=== PATIENT | male | born 1960 | race Caucasian/White ===

== ENCOUNTER 2016-11-19 16:25 | Emergency (ER) | payer SELFPAY ==
[2016-11-19] MEDS ORDERED: ASPIRIN 81 MG TABLET, CHEWABLE PO ONE (16:27)
[2016-11-19 17:13] LABS: ABSOLUTE EOSINOPHILS # (AUTO) 0.2 10^3/uL (0.0-0.6); ABSOLUTE LYMPHOCYTES (AUTO) 1.2 10^3/uL (0.5-4.7); ABSOLUTE MONOCYTES (AUTO) 0.6 10^3/uL (0.1-1.4); BASOPHILS % (AUTO) 0.6 % (0-2); EOSINOPHILS % (AUTO) 3.3 % (0-6); HEMATOCRIT 37.4 % (37.9-51.0); HEMOGLOBIN 12.5 g/dL (13.5-17.0); HGB HCT DIFFERENCE 0.1; LYMPHOCYTES % (AUTO) 24.2 % (13-45); MEAN CORPUSCULAR HEMOGLOBIN 30.7 pg (27.0-33.4); MEAN CORPUSCULAR HGB CONC 33.4 g/dL (32.0-36.0); MEAN CORPUSCULAR VOLUME 92 fl (80-97); MONOCYTES % (AUTO) 12.3 % (3-13); RED BLOOD COUNT 4.08 10^6/uL (4.35-5.55); RED CELL DISTRIBUTION WIDTH 19.1 % (11.5-14.0); SEGMENTED NEUTROPHILS % (AUTO) 59.6 % (42-78)
[2016-11-19] MEDS ORDERED: NORMAL SALINE 1000 ML 1,000 ML IV PRN (17:16)
[2016-11-19] MEDS ORDERED: ONDANSETRON HCL INJ/PF 4 MG/2 ML SDV IV ONE (17:16)
[2016-11-19] MEDS ORDERED: NITROGLYCERIN 2% OINTMENT 1 GM PACKET TP ONE (17:17)
[2016-11-19 17:24] LABS: ALANINE AMINOTRANSFERASE 70 U/L (21-72); ALBUMIN 3.8 g/dL (3.5-5.0); ALKALINE PHOSPHATASE 313 U/L (38-126); ANION GAP 16 (5-19); ASPARTATE AMINO TRANSFERASE 229 U/L (17-59); BILIRUBIN,TOTAL 1.4 mg/dL (0.2-1.3); BLOOD UREA NITROGEN 3 mg/dL (7-20); CALCIUM 8.7 mg/dL (8.4-10.2); CARBON DIOXIDE 24 mmol/L (22-30); CHLORIDE 101 mmol/L (98-107); CREATINE KINASE 51 U/L (55-170); CREATININE RESULT 0.51 mg/dL (0.52-1.25); GLUCOSE 85 mg/dL (75-110); POTASSIUM 4.1 mmol/L (3.6-5.0); SODIUM 140.6 mmol/L (137-145); TOTAL PROTEIN 6.9 g/dL (6.3-8.2)
--- NOTE | 2016-11-19 17:30 | ER Document Report ---
ED General - General Chief Complaint: Chest Pain Stated Complaint: SHORTNESS OF BREATH Time seen by provider: 15:10 Mode of Arrival: Medic Information source: Patient Notes: 56-year-old male who complains of nausea, vomiting, lower chest pain, epigastric pain since August 14. Patient says initially thought his symptoms were related to stomach flu but they have not ever gone away. He reports he's lost 15 pounds of weight since July. He reports about a month ago he had some blood in his stool or black stools but that resolved. He reports history of internal hemorrhoids and thought was related to that. Inc. produces his pain and nausea and sometimes even an attempt to swallow produces nausea and he gags and vomits material back up. He notices this both with solids and liquids. He also reports a one-month history of nasal congestion and cough productive of clear mucus and anterior facial pain at extremities to sinuses. He denies fever, chills, hematemesis, dysuria, back pain, or syncope. He reports his chest discomfort and nausea are not associated with exertion. He hasn't seen physician for symptoms like this previously and had no symptoms like this prior to July. Patient reports he had a cardiac catheterization at [facility] in February that was clear Physical Exam: General: Alert, appears well. HEENT: Normocephalic. Atraumatic. PERRLA. Extraocular movements intact. Oropharynx clear. Neck: Supple. Non-tender. Respiratory: No respiratory distress. Clear and equal breath sounds bilaterally. Not tender to palpation Cardiovascular: Regular rate and rhythm. Abdominal: Normal Inspection. Soft, mild epigastric tenderness no guarding rebound rigidity no referred pain. No distension. Normal Bowel Sounds. Back: Non-tender. No deformity or step off. Extremities: Moves all four extremities. Upper extremities: Normal inspection. Non-tender. Normal color. Normal ROM. Normal temperature. Lower extremities: Normal inspection. Non-tender. No edema. Normal color. Normal ROM. Normal temperature. Neurological: Speech clear mentation normal moves all extremities well Psychological: Normal affect. Normal Mood. Skin: Warm. Dry. Normal color. TRAVEL OUTSIDE OF THE [place] IN LAST 30 DAYS: No - Related Data Allergies/Adverse Reactions: morphine Allergy (Verified 05/28/16 08:08) Penicillins Allergy (Verified 05/28/16 08:08) Past Medical History - Social History Smoking Status: Current Every Day Smoker Family History: CAD - Past Medical History Cardiac Medical History: Reports: Hx Hypertension Psychiatric Medical History: Reports: Hx Depression - Severe Past Surgical History: Reports: Hx Orthopedic Surgery - Immunizations Hx Diphtheria, Pertussis, Tetanus Vaccination: No Review of Systems - Review of Systems Constitutional: denies: Chills, Fever EENT: denies: Ear pain, Throat pain Cardiovascular: See HPI Respiratory: See HPI Gastrointestinal: See HPI Genitourinary: denies: Burning, Dysuria Musculoskeletal: denies: Back pain, Muscle pain, Ankle swelling Skin: denies: Rash Hematologic/Lymphatic: denies: Swollen glands Neurological/Psychological: denies: Weakness, Numbness Physical Exam - Vital signs Vitals: Pulse Ox 95 11/19/16 16:28 Course - Re-evaluation Re-evalutation: 11/19/16 20:08 Patient has had by his report a negative cardiac catheterization within the past year. Patient does not have a positive sonographic Umaña sign but no gallstones pericholecystic fluid or ultrasound evidence for cholecystitis. Swallowing study was normal. 3 abdomen is normal. Patient does not have a surgical abdomen. His hemoglobin is stable. Believe his symptoms are related to gastritis possibly with alcohol use. He'll be discharged with prescription for Carafate and Phenergan and instructed to take proton pump inhibitor and instructed to follow with gastroenterology for further evaluation but I do not believe he requires admission for endoscopy now. - Vital Signs Vital signs: Temp Pulse Resp BP Pulse Ox 97.6 F 19 140/67 H 99 11/19/16 17:01 11/19/16 19:43 11/19/16 18:09 11/19/16 19:43 - Laboratory Result Diagrams: 11/19/16 16:50 11/19/16 16:50 Laboratory results interpreted by me: 11/19/16 11/19/16 16:50 16:50 RBC 4.08 L Hgb 12.5 L Hct 37.4 L RDW 19.1 H Plt Count 89 L BUN 3 L Creatinine 0.51 L Total Bilirubin 1.4 H AST 229 H Alkaline Phosphatase 313 H Creatine Kinase 51 L - Diagnostic Test Radiology reviewed: Image reviewed, Reports reviewed - EKG Interpretation by Me Additional EKG results interpreted by me: 11/19/16 17:30 EKG reviewed by myself shows sinus tachycardia 105 with frequent premature junctional beats no acute changes Discharge - Discharge Clinical Impression: Abdominal pain Qualifiers: Abdominal location: epigastric Qualified Code(s): R10.13 - Epigastric pain Nausea & vomiting Qualifiers: Vomiting type: unspecified Vomiting Intractability: unspecified Qualified Code( s): R11.2 - Nausea with vomiting, unspecified Condition: Stable Disposition: HOME, SELF-CARE Instructions: Abdominal Pain ([facility]) Additional Instructions: Nausea or Vomiting, Nonspecific Vomiting (or nausea without vomiting) can be caused by many different problems. Of course, it can mean that something's wrong with the stomach, such as "stomach flu," ulcers, or inflammation. But it can also be a symptom of a problem that has nothing to do with the stomach or intestines. Vomiting is common with severe headaches, earaches, and tonsillitis. We see it with pneumonia or heart attacks. Drugs can cause nausea. Many abdominal problems cause vomiting; for example, gallstones, kidney stones, pancreatitis, and intestinal obstruction (blocked bowels). In most cases, curing the vomiting depends on fixing the problem that caused it. For temporary relief, we may use an anti-nausea medicine. For home use, we can prescribe suppositories, chewable pills, pills that dissolve in the mouth, or liquid anti-nausea drugs. If the vomiting seems to be caused by a problem in the stomach, acid-suppressing drugs may be prescribed as well. It's important to avoid dehydration. Sip clear liquids. Take increasing amounts of fluid over the first 24 hours. Then start small amounts of bland foods (such as dry toast, applesauce, mashed potato). Avoid aspirin, tobacco, and alcohol. Gradually resume your usual diet. If the vomiting worsens, if the problem that's making you vomit worsens, or if there's evidence of bleeding in the stomach (such as black, tarry stool, bloody or black vomit, or lightheadedness), you should return immediately. Call your doctor if you aren't improved in 24 to 36 hours. Take Prilosec or Prevacid as directed on package in addition to the medicines your prescribed. Follow-up with gastroenterology for recheck. Drinking alcohol will make her abdominal pain worse. Stopping alcohol use suddenly can cause withdrawal which can be dangerous. Your given the number for our [facility] behavioral services which can assist you with safely stopping alcohol use Prescriptions: Promethazine HCl [Phenergan 25 mg Tablet] 1 tab PO Q6H PRN #30 tablet PRN Reason: Sucralfate [Carafate 1 gm Tablet] 1 gm PO ACHS #60 tablet Referrals: PHOENIX LUA MD [ACTIVE STAFF] - Follow up in [address] [facility] [Provider Group] - Follow up in 1 week
[2016-11-19 17:35] LABS: POIKILOCYTOSIS 1+; POLYCHROMASIA SLIGHT
[2016-11-19 17:36] LABS: CREATINE KINASE MB 0.23 ng/mL (<4.55); TEAR DROP CELLS SLIGHT; TROPONIN I < 0.012 ng/mL
[2016-11-19 17:37] LABS: TARGET CELLS 2+
[2016-11-19 17:45] LABS: LIPASE 149.2 U/L (23-300); MAGNESIUM 1.9 mg/dL (1.6-2.3)
[2016-11-19] MEDS ORDERED: THIAMINE HCL 100 MG, FOLIC ACID 1 MG in NORMAL SALINE 50 ML IV ONE (18:39)
[2016-11-19] MEDS ORDERED: LIDOCAINE 2% VISCOUS SOLN 20 ML UDCUP PO ONE (19:56)
[2016-11-19] MEDS ORDERED: METOCLOPRAMIDE HCL ORAL SOLN 10 MG/10 ML UDCUP PO ONE (19:56)
[2016-11-19] MEDS ORDERED: MAG HYDROX/AL HYDROX/SIMETH SUSP 30 ML UDCUP PO ONE (19:56)
--- NOTE | 2016-11-19 22:03 | EKG REPORT ---
SEVERITY:- ABNORMAL ECG - SINUS TACHYCARDIA VENTRICULAR PREMATURE COMPLEX LEFT ANTERIOR FASCICULAR BLOCK : Confirmed by: Jaclyn Deleon MD 19-Nov-2016 22:02:05
[2016-11-19 22:19] VITALS: BP 148/79
== END 2016-11-19 22:19 | disposition home or self-care (01) ==
LOC: ER 16:25
DX: R10.13 Epigastric pain (principal); R11.2 Nausea with vomiting, unspecified; R07.9 Chest pain, unspecified; R63.4 Abnormal weight loss; Z68.21 Body mass index [BMI] 21.0-21.9, adult; Z87.19 Personal history of other diseases of the digestive system; R09.81 Nasal congestion; R05 Cough; I10 Essential (primary) hypertension; I49.40 Unspecified premature depolarization; R00.0 Tachycardia, unspecified; F17.200 Nicotine dependence, unspecified, uncomplicated; Z88.5 Allergy status to narcotic agent; Z88.0 Allergy status to penicillin; Z82.49 Family history of ischemic heart disease and other diseases of the circulatory system
CPT/HCPCS: 93005; 99285; 96361; 96375; 96365; 36415; 82553; 80307; 82550; 83690; 83735; 85025; 80053; 84484; 74022; 74220; 76705; 93010; J3490 ×2; J3411; J2405; J7030

== ENCOUNTER 2016-12-31 02:17 | Inpatient (IN) | payer SELFPAY ==
[2016-12-31] MEDS ORDERED: ONDANSETRON HCL INJ/PF 4 MG/2 ML SDV IV ONE ×2 (02:28→05:25)
[2016-12-31] MEDS ORDERED: KETOROLAC TROMETHAMINE INJ/PF 30 MG/1 ML SDV IV ONE (02:28)
[2016-12-31 03:01] LABS: HEMOGLOBIN 11.5 g/dL (13.5-17.0); HGB HCT DIFFERENCE 0.5; MEAN CORPUSCULAR HEMOGLOBIN 33.5 pg (27.0-33.4); MEAN CORPUSCULAR HGB CONC 33.7 g/dL (32.0-36.0); MEAN CORPUSCULAR VOLUME 100 fl (80-97); RED BLOOD COUNT 3.42 10^6/uL (4.35-5.55); RED CELL DISTRIBUTION WIDTH 15.8 % (11.5-14.0); WHITE BLOOD COUNT 11.7 10^3/uL (4.0-10.5)
[2016-12-31 03:13] LABS: ALANINE AMINOTRANSFERASE 42 U/L (21-72); ALBUMIN 3.2 g/dL (3.5-5.0); ALKALINE PHOSPHATASE 564 U/L (38-126); ANION GAP 15 (5-19); ASPARTATE AMINO TRANSFERASE 229 U/L (17-59); BILIRUBIN,DIRECT 4.1 mg/dL (0.0-0.4); BILIRUBIN,TOTAL 4.8 mg/dL (0.2-1.3); BLOOD UREA NITROGEN 3 mg/dL (7-20); CALCIUM 7.8 mg/dL (8.4-10.2); CARBON DIOXIDE 22 mmol/L (22-30); CHLORIDE 96 mmol/L (98-107); CREATININE RESULT 0.44 mg/dL (0.52-1.25); GLUCOSE 101 mg/dL (75-110); LIPASE 197.4 U/L (23-300); POTASSIUM 3.8 mmol/L (3.6-5.0); TOTAL PROTEIN 6.9 g/dL (6.3-8.2)
[2016-12-31 03:29] LABS: BASOPHILS % (MANUAL) 1 % (0-2); EOSINOPHILS % (MANUAL) 0 % (0-6); LYMPHOCYTES % (MANUAL) 20 % (13-45); TOTAL CELLS COUNTED 100
[2016-12-31 03:32] LABS: ANISOCYTOSIS 1+; POIKILOCYTOSIS 1+; TARGET CELLS 1+; TOXIC GRANULATION SLIGHT; TOXIC VACUOLATION PRESENT
[2016-12-31 04:39] LABS: APPEARANCE,URINE CLEAR; BILIRUBIN,URINE SMALL (NEGATIVE); GLUCOSE, URINE NEGATIVE (NEGATIVE); KETONES,URINE NEGATIVE (NEGATIVE); LEUKOCYTE ESTERASE,URINE NEGATIVE (NEGATIVE); NITRITE,URINE NEGATIVE (NEGATIVE); PROTEIN,URINE NEGATIVE (NEGATIVE); URINE SPECIFIC GRAVITY 1.008
[2016-12-31] MEDS ORDERED: HYDROMORPHONE HCL INJ/PF 2 MG/ML AMPULE IV ONE (05:27)
--- NOTE | 2016-12-31 06:01 | ER Document Report ---
ED General - General Chief Complaint: Abdominal Pain Stated Complaint: ABDOMINAL PAIN Mode of Arrival: Medic Information source: Patient, Relative - Notes: Patient presents to the emergency department with complaints of severe abdominal pain and distention. Patient reports symptoms have been going on since July. He also reports he's had some nausea vomiting or diarrhea since July. He reports his last bowel movement was yesterday but very little. He reports that he does drink alcohol, a couple beers every night. His said he drinks a lot more than that, reports he is a very heavy drinker. Patient reports he was evaluated for this sometime last year. He states he does not have insurance so he never followed up and the pain has gotten worse. Also reports his stomach is larger. TRAVEL OUTSIDE OF THE [place] IN LAST 30 DAYS: No - HPI Onset: - july Onset/Duration: Persistent Quality of pain: Achy, Pressure Severity: Severe Pain Level: 5 Associated symptoms: Diarrhea, Nausea, Vomiting Exacerbated by: Denies Relieved by: Denies Similar symptoms previously: Yes Recently seen / treated by doctor: No - Related Data Allergies/Adverse Reactions: morphine Allergy (Verified 05/28/16 08:08) Penicillins Allergy (Verified 05/28/16 08:08) Past Medical History - General Information source: Patient, Relative - - Social History Smoking Status: Current Every Day Smoker Cigarette use (# per day): Yes Frequency of alcohol use: Heavy Drug Abuse: None Lives with: Family Family History: CAD Patient has suicidal ideation: No Patient has homicidal ideation: No - Past Medical History Cardiac Medical History: Reports: Hx Hypertension Neurological Medical History: Reports: Hx Cerebrovascular Accident Psychiatric Medical History: Reports: Hx Depression - Severe Past Surgical History: Reports: Hx Orthopedic Surgery - Immunizations Hx Diphtheria, Pertussis, Tetanus Vaccination: No Review of Systems - Review of Systems Notes: Review HPI for review of systems., All other systems negative Physical Exam - Vital signs Vitals: Temp Pulse BP Pulse Ox 98.2 F 107 H 120/72 95 12/31/16 02:21 12/31/16 02:21 12/31/16 02:21 12/31/16 02:21 - Notes Notes: PHYSICAL EXAMINATION: GENERAL: looks older than age HEAD: Atraumatic, normocephalic. EYES: Pupils equal round sclera anicteric, conjunctiva are normal. ENT: nares patent . Moist mucous membranes. NECK: Normal range of motion, supple without lymphadenopathy LUNGS: CTAB and equal. No wheezes rales or rhonchi. HEART: Regular rate and rhythm without murmurs ABDOMEN: Large round tight, ttp, distension EXTREMITIES: Normal range of motion, no pitting edema. No cyanosis. NEUROLOGICAL: Cranial nerves grossly intact. Normal sensory/motor PSYCH: Normal mood, normal affect. SKIN: Warm, Dry, normal turgor, no rashes or lesions noted Course - Re-evaluation Re-evalutation: 12/31/16 06:04 serum alcohol 242, patient calm ascites noted on ultrasound liver enzymes elevated. 12/31/16 07:[address] POSEY, AGREES WITH ADMISSION, DR CRISTOBAL CONSULTED, AGREES WITH ADMISSION. PT UPDATED ON PLAN - Vital Signs Vital signs: Temp Pulse Resp BP Pulse Ox 98.6 F 90 18 137/72 H 94 12/31/16 15:35 12/31/16 15:35 12/31/16 15:35 12/31/16 15:35 12/31/16 15:35 - Laboratory Result Diagrams: 12/31/16 02:50 12/31/16 02:50 Laboratory results interpreted by me: 12/31/16 12/31/16 12/31/16 02:50 02:50 02:50 WBC 11.7 H RBC 3.42 L Hgb 11.5 L Hct 34.0 L MCV 100 H MCH 33.5 H RDW 15.8 H Plt Count 81 L Abs Neuts (Manual) 8.4 H Sodium 133.0 L Chloride 96 L BUN 3 L Creatinine 0.44 L Calcium 7.8 L Total Bilirubin 4.8 H Direct Bilirubin 4.1 H AST 229 H Alkaline Phosphatase 564 H Albumin 3.2 L Urine Bilirubin Urine Urobilinogen Acetaminophen < 10 L 12/31/16 04:05 WBC RBC Hgb Hct MCV MCH RDW Plt Count Abs Neuts (Manual) Sodium Chloride BUN Creatinine Calcium Total Bilirubin Direct Bilirubin AST Alkaline Phosphatase Albumin Urine Bilirubin SMALL H Urine Urobilinogen 4.0 H Acetaminophen - Diagnostic Test Radiology reviewed: Image reviewed, Reports reviewed - US/U/ S ABDOMEN LTD W/DOPPLER IMPRESSION: Technical limitations as above. Trace ascites Discharge - Discharge Clinical Impression: Ascites of liver Condition: Stable Disposition: ADMITTED INPATIENT Admitting Provider: Hospitalist - buste Unit Admitted: Medical Floor
[2016-12-31] MEDS ORDERED: NORMAL SALINE 1000 ML 1,000 ML IV ONE (07:37)
[2016-12-31] MEDS ORDERED: IPRATROPIUM/ALBUTEROL 0.5-2.5 MG/3 ML AMPUL NEB PRN (08:34)
[2016-12-31] MEDS ORDERED: LORAZEPAM 1 MG TABLET PO PRN (08:43)
[2016-12-31] MEDS ORDERED: CEFOTAXIME SODIUM 2 GM in DEXTROSE 5%-WATER 50 ML IV SCH (08:45)
[2016-12-31] MEDS ORDERED: OXYCODONE-ACETAMINOPHEN 5-325 MG TABLET ONE (08:51)
[2016-12-31] MEDS: FAMOTIDINE 20 MG TABLET PO SCH ×2 (09:32→21:33)
[2016-12-31] MEDS: NORMAL SALINE 1000 ML 1,000 ML IV PRN ×3 (09:54→22:48)
[2016-12-31] MEDS ORDERED: CYANOCOBALAMIN (VITAMIN B-12) 1,000 MCG TABLET PO SCH (10:00)
[2016-12-31] MEDS ORDERED: CEFTRIAXONE RTU 2 GM/D5W 50 ML IV SCH (10:00)
[2016-12-31] MEDS ORDERED: THIAMINE HCL 100 MG TABLET PO SCH (10:00)
[2016-12-31] MEDS ORDERED: FOLIC ACID 1 MG TABLET PO SCH (10:00)
[2016-12-31] MEDS: OXYCODONE-ACETAMINOPHEN 5-325 MG TABLET PO PRN ×2 (11:16→21:35)
--- NOTE | 2016-12-31 11:25 | PDOC H&P ---
History of Present Illness Admission Date/PCP: 12/31/16 08:34 Patient complains of: Nausea and vomiting and abdominal pain. History of Present Illness: ELSA FONTENOT JR is a 56 year old male who reports a two-month history of nausea and vomiting along with diarrhea but this got progressively worse over the last 2 days. He reports she's had a 20 pound weight loss over the last year. He also reports having some low-grade fevers and chills. He is a alcoholic who has at least 3 beers daily. He had an ultrasound done which shows him to have some ascitic fluid present. The patient takes no medications. He denies any cough. He denies orthopnea or PND. Denies any lower extremity edema. He does report he drinks at least 3 beers daily in the past has drank more than that. Patient reports he feels dizzy when he stands up but denies any loss of consciousness. Denies any chest pain or palpitations. Denies any dysuria. Denies any hematemesis. Denies any melena or bright red blood per rectum. Past Medical History Cardiac Medical History: Reports: Hypertension Pulmonary Medical History: Reports: None EENT Medical History: Reports: None Neurological Medical History: Reports: Ischemic CVA Endocrine Medical History: Reports: None Renal/ Medical History: Reports: None Malignancy Medical History: Reports: None Skin Medical History: Reports: None Psychiatric Medical History: Reports: Depression - Severe Traumatic Medical History: Reports: None Hematology: Reports: None Infectious Medical History: Reports: None Past Surgical History Past Surgical History: Reports: Orthopedic Surgery - Back surgery Social History Information Source: Patient Lives with: Family Smoking Status: Current Every Day Smoker Cigarettes Packs Per Day: 0.5 Frequency of Alcohol Use: Heavy Hx Recreational Drug Use: No Drugs: None Hx Prescription Drug Abuse: No - Advance Directive Resuscitation Status: Full Code Surrogate healthcare decision maker:: His Family History Family History: CAD Family History: Father at age 81 had coronary artery disease as well as hyperlipidemia. Mother at age 71 from coronary artery disease. Parental Family History Reviewed: Yes Children Family History Reviewed: No Sibling(s) Family History Reviewed.: No Medication/Allergy Home Medications: Cyanocobalamin (Vitamin B-12) [B-12] 1,000 mcg PO DAILY #30 tablet 03/20/16 Thiamine HCl [Thiamine 100 mg Tablet] 200 mg PO DAILY #60 tablet 03/20/16 Tramadol HCl [Ultram 50 mg Tablet] 50 mg PO Q12HP PRN #20 tablet 03/20/16 Promethazine HCl [Phenergan 25 mg Tablet] 1 tab PO Q6H PRN #30 tablet 11/19/16 Sucralfate [Carafate 1 gm Tablet] 1 gm PO ACHS #60 tablet 11/19/16 Allergies/Adverse Reactions: morphine Allergy (Verified 05/28/16 08:08) Penicillins Allergy (Verified 05/28/16 08:08) Review of Systems Constitutional: PRESENT: chills, fever(s), weight loss - 20 pound weight loss. ABSENT: night sweats, weakness Eyes: ABSENT: visual disturbances Ears: ABSENT: hearing changes Cardiovascular: ABSENT: chest pain, dyspnea on exertion, edema, orthropnea, palpitations Respiratory: ABSENT: cough, hemoptysis Gastrointestinal: PRESENT: abdominal pain, bloating, diarrhea, nausea, vomiting. ABSENT: coffee ground emesis, heartburn, hematemesis, hematochezia, melena Genitourinary: ABSENT: dysuria, hematuria Musculoskeletal: ABSENT: joint swelling Integumentary: ABSENT: rash, wounds Neurological: ABSENT: abnormal gait, abnormal speech, confusion, dizziness, focal weakness, syncope Psychiatric: ABSENT: anxiety, depression Endocrine: ABSENT: cold intolerance, heat intolerance, polydipsia, polyuria Hematologic/Lymphatic: ABSENT: easy bleeding, easy bruising Physical Exam Vital Signs: Temp Pulse Resp BP Pulse Ox 98.1 F 77 18 133/68 H 92 12/31/16 10:07 12/31/16 10:07 12/31/16 10:07 12/31/16 10:07 12/31/16 10:07 Intake & Output 12/30/16 12/31/16 01/01/17 06:59 06:59 06:59 Weight 63.503 kg General appearance: PRESENT: no acute distress Eye exam: PRESENT: conjunctiva pink, scleral icterus Ear exam: PRESENT: normal external ear exam Mouth exam: PRESENT: moist, tongue midline Neck exam: ABSENT: carotid bruit, JVD, lymphadenopathy, thyromegaly Respiratory exam: PRESENT: clear to auscultation billy. ABSENT: rales, rhonchi, wheezes Cardiovascular exam: PRESENT: RRR. ABSENT: diastolic murmur, rubs, systolic murmur Pulses: PRESENT: normal dorsalis pedis pul Vascular exam: PRESENT: normal capillary refill GI/Abdominal exam: PRESENT: distended, firm, normal bowel sounds, tenderness - Diffuse tenderness.. ABSENT: guarding, rebound, rigid Rectal exam: PRESENT: heme (-) stool Extremities exam: ABSENT: calf tenderness, clubbing, pedal edema Neurological exam: PRESENT: alert, awake, oriented to person, oriented to place , oriented to time, oriented to situation, CN II-XII grossly intact. ABSENT: motor sensory deficit Psychiatric exam: PRESENT: appropriate affect, normal mood Skin exam: PRESENT: dry, intact, warm, other - Some spider hemangiomas present. ABSENT: cyanosis Results Impressions: Abdomen Ultrasound 12/31/16 05:25 IMPRESSION: Technical limitations as above. Trace ascites. Assessment & Plan - Diagnosis (1) Abdominal pain Is this a current diagnosis for this admission?: YesPlan: The patient denies any history of cirrhosis and his ultrasound shows coarse texture that is suggestive of that. He has been a heavy drinker. Given the small amount of ascites as present along with the abdominal pain we will treat empirically for spontaneous bacterial peritonitis. Radiology reports that there was not enough ascitic fluid to drain and we will just treat empirically. Patient will be given Rocephin. Will ask GI to evaluate to see whether or not any further workup needs to be done. His liver enzymes are elevated and it is assumed that this is from cirrhosis however we will check hepatitis serologies (2) Ascites of liver Is this a current diagnosis for this admission?: YesPlan: Patient is a small amount of ascites present. He does not have a formal diagnosis of cirrhosis yet. Patient is to be seen by GI for evaluation. (3) Alcohol abuse Is this a current diagnosis for this admission?: YesPlan: We'll give Ativan as needed. (4) Hyperlipidemia Is this a current diagnosis for this admission?: YesPlan: We'll hold off on any cholesterol medications given his elevated liver enzymes at this time. - Time Time Spent: 50 to 70 Minutes - Inpatient Certification Medical Necessity: Need for IV Antibiotics
[2016-12-31 13:40] LABS: PROTHROMBIN TIME 15.6 SEC (11.4-15.4)
[2016-12-31 13:41] LABS: PARTIAL THROMBOPLASTIN TIME 38.4 SEC (23.5-35.8)
[2016-12-31] MEDS: LORAZEPAM 1 MG TABLET PO PRN ×2 (16:10→20:27)
[2016-12-31] MEDS ORDERED: CEFTRIAXONE 2 GM/D5W RTU 2 GM/50 ML RTUPB IV SCH (18:00)
[2016-12-31] MEDS: LORAZEPAM INJ 2 MG/1 ML VIAL IV PRN ×2 (18:15→22:47)
--- NOTE | 2016-12-31 20:24 | PDOC CONSULTATION ---
Consultation Consult Date: 12/31/16 History of Present Illness Admission Date/PCP: 12/31/16 08:34 History of Present Illness: This is a 56 year old patient was admitted through the emergency room with abdominal pain, nausea, and vomiting. He has been having recurrent pain since August of last year. He has pain almost every day with or without eating. He denies diarrhea in fact he has been more constipated lately. There is no rectal bleeding. He had an ultrasound of the abdomen today that showed fatty liver and trace amount of ascites in the lower abdomen. He has had two CTA of the abdomen and chest and two other abdominal ultrasounds since February 2016 and this has not shown any significant abnormality except for fatty liver. None of these showed ascites. On admission his bilirubin was 4.8 with a direct of 4.1. His AST was 229 and alkaline phosphatase of 564. Back in October his bilirubin was 1.4 with elevated AST of 229 and alkaline phosphatase of 313. He also has thrombocytopenia at least since February of last year. He drinks alcohol every day Past Medical History Cardiac Medical History: Reports: Hypertension Pulmonary Medical History: Reports: None EENT Medical History: Reports: None Neurological Medical History: Reports: Ischemic CVA Endocrine Medical History: Reports: None Renal/ Medical History: Reports: None Malignancy Medical History: Reports: None Skin Medical History: Reports: None Psychiatric Medical History: Reports: Depression - Severe Traumatic Medical History: Reports: None Hematology: Reports: None Infectious Medical History: Reports: None Past Surgical History Past Surgical History: Reports: Orthopedic Surgery Social History Lives with: Family Smoking Status: Current Every Day Smoker Cigarettes Packs Per Day: 0.5 Frequency of Alcohol Use: Heavy Hx Recreational Drug Use: No Drugs: None Hx Prescription Drug Abuse: No - Advance Directive Resuscitation Status: Full Code Family History Family History: CAD Parental Family History Reviewed: No Children Family History Reviewed: NA Sibling(s) Family History Reviewed.: NA Medication/Allergy Home Medications: Cyanocobalamin (Vitamin B-12) [B-12] 1,000 mcg PO DAILY #30 tablet 03/20/16 Thiamine HCl [Thiamine 100 mg Tablet] 200 mg PO DAILY #60 tablet 03/20/16 Tramadol HCl [Ultram 50 mg Tablet] 50 mg PO Q12HP PRN #20 tablet 03/20/16 Promethazine HCl [Phenergan 25 mg Tablet] 1 tab PO Q6H PRN #30 tablet 11/19/16 Sucralfate [Carafate 1 gm Tablet] 1 gm PO ACHS #60 tablet 11/19/16 Allergies/Adverse Reactions: morphine Allergy (Verified 05/28/16 08:08) Penicillins Allergy (Verified 05/28/16 08:08) Review of Systems All systems: reviewed and no additional remarkable complaints except as stated Physical Exam Vital Signs: Temp Pulse Resp BP Pulse Ox 98.6 F 90 18 137/72 H 94 12/31/16 15:35 12/31/16 15:35 12/31/16 15:35 12/31/16 15:35 12/31/16 15:35 Intake & Output 12/30/16 12/31/16 01/01/17 06:59 06:59 06:59 Intake Total 1475 Output Total 300 Balance 1175 Weight 63.503 kg Exam: General: Patient is alert and looks unkempt HEENT: There is no pallor but he is jaundiced. PERRLA. Oropharynx normal Respiratory: Kyphosis. No respiratory distress. Chest wall palpitation was unremarkable. Breath sounds were normal Cardiovascular: Heart sounds 1 and 2 normal with no murmurs. Abdominal: Distended with mostly air. Soft and nontender. Liver and spleen not palpable. No ascites demonstrated. Bowel sounds active. Rectal examination was deferred. Extremities: No edema Neurological: Alert and oriented x4. Skin: No significant rash Psychological: Normal affect Results Impressions: Abdomen Ultrasound 12/31/16 05:25 IMPRESSION: Technical limitations as above. Trace ascites. Assessment & Plan - Diagnosis (1) Abdominal pain Is this a current diagnosis for this admission?: YesPlan: The etiology for his abdominal pain is unclear but differential diagnoses include gastric ulcer and gastritis, hepatic neoplasm, irritable bowel syndrome. He has had this pain for many months and previous ultrasound has been unremarkable. I will suggest a CAT scan of his abdomen especially with his jaundice. He would need endoscopies at some point which could be performed as outpatient (2) Cirrhosis of liver Qualifiers: Hepatic cirrhosis type: alcoholic cirrhosis Is this a current diagnosis for this admission?: YesPlan: I suspect he has cirrhosis with his thrombocytopenia and chronically elevated liver function tests. This is probably from his alcohol abuse but issue have hepatitis and autoimmune serology. (3) Alcohol abuse Is this a current diagnosis for this admission?: Yes (4) Ascites of liver Is this a current diagnosis for this admission?: YesPlan: He only had trace ascites on ultrasound which I do not believe will explain his abdominal pain and unlikely to be associated by peritonitis. He was started on empiric antibiotics
[2016-12-31] MEDS: CEFTRIAXONE 2 GM/D5W RTU 2 GM/50 ML RTUPB IV SCH (21:33)
[2017-01-01] MEDS: LORAZEPAM 1 MG TABLET PO PRN ×5 (01:31→19:37)
[2017-01-01] MEDS: LORAZEPAM INJ 2 MG/1 ML VIAL IV PRN ×4 (02:35→17:37)
[2017-01-01 05:30] LABS: ALANINE AMINOTRANSFERASE 43 U/L (21-72); ALBUMIN 2.6 g/dL (3.5-5.0); ALKALINE PHOSPHATASE 476 U/L (38-126); ANION GAP 13 (5-19); ASPARTATE AMINO TRANSFERASE 179 U/L (17-59); BILIRUBIN,DIRECT 5.1 mg/dL (0.0-0.4); BILIRUBIN,TOTAL 6.3 mg/dL (0.2-1.3); BLOOD UREA NITROGEN 2 mg/dL (7-20); CALCIUM 7.6 mg/dL (8.4-10.2); CARBON DIOXIDE 22 mmol/L (22-30); CHLORIDE 99 mmol/L (98-107); CREATININE RESULT 0.39 mg/dL (0.52-1.25); GLUCOSE 79 mg/dL (75-110); MAGNESIUM 1.5 mg/dL (1.6-2.3); SODIUM 133.5 mmol/L (137-145); TOTAL PROTEIN 5.8 g/dL (6.3-8.2)
[2017-01-01 05:35] LABS: POTASSIUM 3.5 mmol/L (3.6-5.0)
[2017-01-01] MEDS: OXYCODONE-ACETAMINOPHEN 5-325 MG TABLET PO PRN ×2 (05:48→20:19)
[2017-01-01] MEDS: MAGNESIUM SULFATE/D5W 100 ML IV SCH ×2 (08:37→10:22)
[2017-01-01] MEDS: NORMAL SALINE 1000 ML 1,000 ML IV PRN ×2 (08:37→21:23)
--- NOTE | 2017-01-01 09:50 | PDOC PROGRESS REPORT ---
Subjective Progress Note for:: 01/01/17 Subjective:: The patient is more confused today. He was evaluated by GI yesterday and had a CT scan. Physical Exam Vital Signs: Temp Pulse Resp BP Pulse Ox 98.4 F 86 16 132/69 H 98 01/01/17 07:19 01/01/17 09:33 01/01/17 09:33 01/01/17 07:19 01/01/17 09:33 Intake & Output 12/31/16 01/01/17 01/02/17 06:59 06:59 06:59 Intake Total 2985 Output Total 800 Balance 2185 Weight 69.4 kg General appearance: PRESENT: no acute distress Head exam: PRESENT: atraumatic, normocephalic Eye exam: PRESENT: conjunctiva pink. ABSENT: scleral icterus Ear exam: PRESENT: normal external ear exam Mouth exam: PRESENT: moist, tongue midline Neck exam: ABSENT: JVD Respiratory exam: PRESENT: clear to auscultation billy. ABSENT: rales, rhonchi, wheezes Cardiovascular exam: PRESENT: RRR. ABSENT: diastolic murmur, rubs, systolic murmur GI/Abdominal exam: PRESENT: normal bowel sounds, soft, tenderness - Mild diffuse tenderness.. ABSENT: distended, guarding, mass, organolmegaly, rebound Extremities exam: ABSENT: calf tenderness, clubbing, pedal edema Neurological exam: PRESENT: altered, oriented to person, oriented to place, CN II-XII grossly intact, motor sensory deficit. ABSENT: oriented to time, oriented to situation Psychiatric exam: PRESENT: flat affect Skin exam: PRESENT: dry, intact, warm. ABSENT: cyanosis, rash Results Laboratory Results: 01/01/17 03:39 01/01/17 03:39 Sodium 133.5 L Potassium 3.5 L Chloride 99 Carbon Dioxide 22 Anion Gap 13 BUN 2 L Creatinine 0.39 L Est GFR ( Amer) > 60 Est GFR (Non-Af Amer) > 60 Glucose 79 Calcium 7.6 L Magnesium 1.5 L Total Bilirubin 6.3 H AST 179 H ALT 43 Alkaline Phosphatase 476 H Total Protein 5.8 L Albumin 2.6 L Impressions: Abdomen Ultrasound 12/31/16 05:25 IMPRESSION: Technical limitations as above. Trace ascites. Abdomen/Pelvis CT 01/01/17 00:00 IMPRESSION: Diffuse fatty infiltration of the liver with an enlarged liver. Generalized ascites. Assessment & Plan - Diagnosis (1) Abdominal pain Is this a current diagnosis for this admission?: YesPlan: The patient was started on empiric treatment for spontaneous bacterial peritonitis. He was evaluated by gastroenterology yesterday. Their input is greatly appreciated. We'll continue with the Rocephin for now. Elevated liver enzymes and hepatitis serologies are pending. He also has antimitochondrial antibodies have been ordered. (2) Ascites of liver Is this a current diagnosis for this admission?: YesPlan: Patient is a small amount of ascites present. He does not have a formal diagnosis of cirrhosis yet. Patient has been seen by GI. (3) Alcohol abuse Is this a current diagnosis for this admission?: YesPlan: We'll give Ativan as needed. The patient has evidence for delirium tremens. (4) Hyperlipidemia Is this a current diagnosis for this admission?: YesPlan: We'll hold off on any cholesterol medications given his elevated liver enzymes at this time. - Time Time Spent with patient: 25-34 minutes - Inpatient Certification Medical Necessity: Need Close Monitoring Due to Risk of Patient Decompensation, Need For IV Fluids
[2017-01-01] MEDS: FAMOTIDINE 20 MG TABLET PO SCH ×2 (10:21→21:24)
[2017-01-01] MEDS: NORMAL SALINE 1000 ML 1,000 ML with POTASSIUM CHLORIDE 20 MEQ, MAGNESIUM SULFATE 8 MEQ,... IV PRN ×5 (11:06)
[2017-01-01] MEDS: CEFTRIAXONE 2 GM/D5W RTU 2 GM/50 ML RTUPB IV SCH (21:22)
[2017-01-02] MEDS: LORAZEPAM 1 MG TABLET PO PRN ×2 (04:34→22:00)
[2017-01-02] MEDS: OXYCODONE-ACETAMINOPHEN 5-325 MG TABLET PO PRN (04:34)
[2017-01-02 05:31] LABS: HEMATOCRIT 34.6 % (37.9-51.0); HEMOGLOBIN 11.8 g/dL (13.5-17.0); HGB HCT DIFFERENCE 0.8; MEAN CORPUSCULAR HEMOGLOBIN 34.2 pg (27.0-33.4); MEAN CORPUSCULAR VOLUME 101 fl (80-97); RED BLOOD COUNT 3.44 10^6/uL (4.35-5.55)
[2017-01-02 05:46] LABS: ALANINE AMINOTRANSFERASE 40 U/L (21-72); ALBUMIN 2.6 g/dL (3.5-5.0); ALKALINE PHOSPHATASE 463 U/L (38-126); ANION GAP 12 (5-19); ASPARTATE AMINO TRANSFERASE 146 U/L (17-59); BLOOD UREA NITROGEN 2 mg/dL (7-20); CALCIUM 7.3 mg/dL (8.4-10.2); CARBON DIOXIDE 23 mmol/L (22-30); CHLORIDE 100 mmol/L (98-107); CREATININE RESULT 0.33 mg/dL (0.52-1.25); GLUCOSE 61 mg/dL (75-110); MAGNESIUM 1.9 mg/dL (1.6-2.3); POTASSIUM 3.3 mmol/L (3.6-5.0); SODIUM 134.6 mmol/L (137-145); TOTAL PROTEIN 5.8 g/dL (6.3-8.2)
[2017-01-02] MEDS: NORMAL SALINE 1000 ML 1,000 ML IV PRN ×2 (05:58→23:54)
[2017-01-02 05:59] LABS: BASOPHILS % (MANUAL) 0 % (0-2); EOSINOPHILS % (MANUAL) 2 % (0-6); LYMPHOCYTES % (MANUAL) 8 % (13-45); TOTAL CELLS COUNTED 100
[2017-01-02 06:02] LABS: ANISOCYTOSIS 1+; POIKILOCYTOSIS 2+; TARGET CELLS 2+; TEAR DROP CELLS SLIGHT; TOXIC VACUOLATION PRESENT
[2017-01-02] MEDS: FAMOTIDINE 20 MG TABLET PO SCH ×2 (09:23→22:00)
--- NOTE | 2017-01-02 11:22 | PDOC PROGRESS REPORT ---
Subjective Progress Note for:: 01/02/17 Subjective:: The patient is still confused Physical Exam Vital Signs: Temp Pulse Resp BP Pulse Ox 97.4 F 99 16 131/86 H 98 01/02/17 03:42 01/02/17 08:00 01/02/17 08:00 01/02/17 07:08 01/02/17 08:00 Intake & Output 01/01/17 01/02/17 01/03/17 06:59 06:59 06:59 Intake Total 2985 2952 Output Total 800 Balance 2185 2952 Weight 69.4 kg 68.9 kg General appearance: PRESENT: no acute distress Eye exam: PRESENT: conjunctiva pink. ABSENT: scleral icterus Mouth exam: PRESENT: moist, tongue midline Neck exam: ABSENT: JVD Respiratory exam: PRESENT: clear to auscultation billy. ABSENT: rales, rhonchi, wheezes Cardiovascular exam: PRESENT: RRR. ABSENT: diastolic murmur, rubs, systolic murmur GI/Abdominal exam: PRESENT: normal bowel sounds, soft. ABSENT: distended, guarding, mass, organolmegaly, rebound, tenderness Extremities exam: ABSENT: calf tenderness, clubbing, pedal edema Neurological exam: PRESENT: altered, oriented to person, oriented to place, oriented to time, oriented to situation, CN II-XII grossly intact. ABSENT: motor sensory deficit Psychiatric exam: PRESENT: flat affect Skin exam: PRESENT: dry, intact, warm. ABSENT: cyanosis, rash Results Laboratory Results: 01/02/17 04:21 01/02/17 04:21 01/02/17 01/02/17 04:21 04:21 WBC 10.0 RBC 3.44 L Hgb 11.8 L Hct 34.6 L MCV 101 H MCH 34.2 H MCHC 34.0 RDW 16.0 H Plt Count 75 L Seg Neutrophils % Not Reportable Lymphocytes % Not Reportable Monocytes % Not Reportable Eosinophils % Not Reportable Basophils % Not Reportable Absolute Neutrophils Not Reportable Absolute Lymphocytes Not Reportable Absolute Monocytes Not Reportable Absolute Eosinophils Not Reportable Absolute Basophils Not Reportable Sodium 134.6 L Potassium 3.3 L Chloride 100 Carbon Dioxide 23 Anion Gap 12 BUN 2 L Creatinine 0.33 L Est GFR ( Amer) > 60 Est GFR (Non-Af Amer) > 60 Glucose 61 L Calcium 7.3 L Magnesium 1.9 Total Bilirubin 7.0 H AST 146 H ALT 40 Alkaline Phosphatase 463 H Total Protein 5.8 L Albumin 2.6 L Impressions: Abdomen Ultrasound 12/31/16 05:25 IMPRESSION: Technical limitations as above. Trace ascites. Abdomen/Pelvis CT 01/01/17 00:00 IMPRESSION: Diffuse fatty infiltration of the liver with an enlarged liver. Generalized ascites. Assessment & Plan - Diagnosis (1) Abdominal pain Is this a current diagnosis for this admission?: YesPlan: The patient was started on empiric treatment for spontaneous bacterial peritonitis. We'll continue with the Rocephin for now. Elevated liver enzymes and hepatitis serologies are pending. He also has antimitochondrial antibodies have been ordered. (2) Ascites of liver Is this a current diagnosis for this admission?: YesPlan: Patient is a small amount of ascites present. He does not have a formal diagnosis of cirrhosis yet. Patient has been seen by GI. (3) Alcohol abuse Is this a current diagnosis for this admission?: YesPlan: We'll give Ativan as needed. The patient has evidence for delirium tremens. (4) Hyperlipidemia Is this a current diagnosis for this admission?: YesPlan: We'll hold off on any cholesterol medications given his elevated liver enzymes at this time. - Time Time Spent with patient: 25-34 minutes - Inpatient Certification Medical Necessity: Need Close Monitoring Due to Risk of Patient Decompensation
[2017-01-02] MEDS: NORMAL SALINE 1000 ML 1,000 ML with POTASSIUM CHLORIDE 20 MEQ, MAGNESIUM SULFATE 8 MEQ,... IV PRN ×5 (13:28)
[2017-01-02] MEDS: CEFTRIAXONE 2 GM/D5W RTU 2 GM/50 ML RTUPB IV SCH (22:05)
[2017-01-03] MEDS: LORAZEPAM INJ 2 MG/1 ML VIAL IV PRN ×3 (02:10→22:51)
[2017-01-03 05:16] LABS: HEMATOCRIT 33.6 % (37.9-51.0); HEMOGLOBIN 11.2 g/dL (13.5-17.0); MEAN CORPUSCULAR HEMOGLOBIN 33.9 pg (27.0-33.4); MEAN CORPUSCULAR HGB CONC 33.3 g/dL (32.0-36.0); MEAN CORPUSCULAR VOLUME 102 fl (80-97); RED BLOOD COUNT 3.31 10^6/uL (4.35-5.55)
[2017-01-03 05:30] LABS: ALANINE AMINOTRANSFERASE 40 U/L (21-72); ALBUMIN 2.6 g/dL (3.5-5.0); ALKALINE PHOSPHATASE 390 U/L (38-126); ANION GAP 10 (5-19); ASPARTATE AMINO TRANSFERASE 133 U/L (17-59); BILIRUBIN,DIRECT 6.5 mg/dL (0.0-0.4); BILIRUBIN,TOTAL 7.6 mg/dL (0.2-1.3); BLOOD UREA NITROGEN 4 mg/dL (7-20); CALCIUM 7.6 mg/dL (8.4-10.2); CARBON DIOXIDE 23 mmol/L (22-30); CHLORIDE 102 mmol/L (98-107); CREATININE RESULT 0.32 mg/dL (0.52-1.25); GLUCOSE 76 mg/dL (75-110); POTASSIUM 3.5 mmol/L (3.6-5.0); SODIUM 135.4 mmol/L (137-145); TOTAL PROTEIN 5.7 g/dL (6.3-8.2)
[2017-01-03 05:41] LABS: BAND NEUTROPHILS % (MANUAL) 3 % (3-5); BASOPHILS % (MANUAL) 0 % (0-2); EOSINOPHILS % (MANUAL) 4 % (0-6); LYMPHOCYTES % (MANUAL) 10 % (13-45); TOTAL CELLS COUNTED 100
[2017-01-03 05:42] LABS: ANISOCYTOSIS 1+; POIKILOCYTOSIS SLIGHT; POLYCHROMASIA SLIGHT; TARGET CELLS SLIGHT; TOXIC GRANULATION SLIGHT; TOXIC VACUOLATION PRESENT
[2017-01-03] MEDS: LORAZEPAM 1 MG TABLET PO PRN ×2 (08:56→18:10)
[2017-01-03] MEDS: NORMAL SALINE 1000 ML 1,000 ML IV PRN (08:58)
[2017-01-03] MEDS: FAMOTIDINE 20 MG TABLET PO SCH (09:29)
--- NOTE | 2017-01-03 09:42 | PDOC PROGRESS REPORT ---
Subjective Progress Note for:: 01/03/17 Subjective:: Patient remains confused and occasionally disoriented. At the time of my visit he does know his name and that he has in the hospital in [facility]. He did have an episode this morning of attempting to get out of bed unassisted and sliding to the floor. He had no injury. He does state that he still has abdominal discomfort. Patient denies fever, chills, headache, new focal weakness, chest pain, shortness of breath, nausea, vomiting, diarrhea, constipation. Physical Exam Vital Signs: Temp Pulse Resp BP Pulse Ox 97.3 F 94 16 137/80 H 96 01/03/17 07:22 01/03/17 07:22 01/03/17 07:22 01/03/17 07:22 01/03/17 07:22 Intake & Output 01/02/17 01/03/17 01/04/17 06:59 06:59 06:59 Intake Total 2952 3308 Output Total 250 Balance 2952 3058 Weight 68.9 kg 68.8 kg GENERAL: No acute distress, disoriented, mumbling words. HEENT: Conjunctiva clear, nonicteric, moist mucous membranes, no JVD, midline trachea RESPIRATORY: Clear to auscultation bilaterally, no wheezes, no rhonchi CARDIAC: Regular rate and rhythm, no murmurs/gallops/rubs ABDOMEN: Soft, distended, diffuse tenderness, positive bowel sounds, no rebound , no guarding EXTREMETIES: No edema, cyanosis, clubbing NEUROLOGIC: Alert, oriented to person/place only, CN's grossly intact, no focal deficits SKIN: Jaundice PSYCH: Unusual affect Results Laboratory Results: 01/03/17 04:56 01/03/17 04:56 01/03/17 01/03/17 04:56 04:56 WBC 9.0 RBC 3.31 L Hgb 11.2 L Hct 33.6 L MCV 102 H MCH 33.9 H MCHC 33.3 RDW 16.0 H Plt Count 87 L Seg Neutrophils % Not Reportable Lymphocytes % Not Reportable Monocytes % Not Reportable Eosinophils % Not Reportable Basophils % Not Reportable Absolute Neutrophils Not Reportable Absolute Lymphocytes Not Reportable Absolute Monocytes Not Reportable Absolute Eosinophils Not Reportable Absolute Basophils Not Reportable Sodium 135.4 L Potassium 3.5 L Chloride 102 Carbon Dioxide 23 Anion Gap 10 BUN 4 L Creatinine 0.32 L Est GFR ( Amer) > 60 Est GFR (Non-Af Amer) > 60 Glucose 76 Calcium 7.6 L Total Bilirubin 7.6 H AST 133 H ALT 40 Alkaline Phosphatase 390 H Total Protein 5.7 L Albumin 2.6 L Impressions: Abdomen/Pelvis CT 01/01/17 00:00 IMPRESSION: Diffuse fatty infiltration of the liver with an enlarged liver. Generalized ascites. Abdomen Ultrasound 01/02/17 00:00 IMPRESSION: UNREMARKABLE ULTRASOUND OF THE GALLBLADDER. Assessment & Plan - Diagnosis (1) Systemic inflammatory response syndrome (SIRS) Is this a current diagnosis for this admission?: YesPlan: Likely secondary to spontaneous bacterial peritonitis. (2) Spontaneous bacterial peritonitis Is this a current diagnosis for this admission?: YesPlan: Continue IV Rocephin. CT scan of the abdomen shows ascites, however this is not urgent after perform paracentesis. (3) Encephalopathy Is this a current diagnosis for this admission?: YesPlan: Possibly secondary to Wernicke's encephalopathy. Continue thiamine. That being said given elevated liver function studies would like to check an ammonia level. I would like to make patient NPO until mental status improves secondary to aspiration risk. I will have physical therapy evaluate once patient's mental status improves. (4) Delirium tremens Is this a current diagnosis for this admission?: Yes (5) Thrombocytopenia Is this a current diagnosis for this admission?: YesPlan: Likely secondary to alcohol abuse and end-stage liver disease. (6) Hypokalemia Is this a current diagnosis for this admission?: YesPlan: Change maintenance IV fluids to [id number] 20 mEq KCl/liter. Check magnesium level. (7) Alcohol abuse Is this a current diagnosis for this admission?: YesPlan: Continue to treat alcohol withdrawal with when necessary IV Ativan. Continue thiamine supplementation. (8) Cirrhosis of liver Qualifiers: Hepatic cirrhosis type: alcoholic cirrhosis Is this a current diagnosis for this admission?: YesPlan: Patient has end-stage liver disease based on liver function studies, thrombocytopenia and coagulopathy. Dr. Gaines of GI consulted. (9) Hyponatremia Is this a current diagnosis for this admission?: Yes - Time Time Spent with patient: 35 or more minutes
[2017-01-03] MEDS: PANTOPRAZOLE SODIUM 40 MG VIAL IV SCH ×2 (10:17→21:07)
[2017-01-03] MEDS: POTASSI CL 20 MEQ/D5NS 1L 1,000 ML IV PRN (10:17)
[2017-01-03] MEDS: NORMAL SALINE 1000 ML 1,000 ML with POTASSIUM CHLORIDE 20 MEQ, MAGNESIUM SULFATE 8 MEQ,... IV PRN ×5 (14:15)
[2017-01-03] MEDS: LACTULOSE SYRUP 20 GM/30 ML UDCUP PO SCH (18:10)
[2017-01-03] MEDS: CEFTRIAXONE 2 GM/D5W RTU 2 GM/50 ML RTUPB IV SCH (21:07)
[2017-01-04] MEDS: LACTULOSE SYRUP 20 GM/30 ML UDCUP PO SCH ×5 (01:35→23:23)
[2017-01-04 04:18] LABS: HEMATOCRIT 37.7 % (37.9-51.0); HEMOGLOBIN 12.7 g/dL (13.5-17.0); HGB HCT DIFFERENCE 0.4; MEAN CORPUSCULAR HEMOGLOBIN 34.2 pg (27.0-33.4); MEAN CORPUSCULAR HGB CONC 33.8 g/dL (32.0-36.0); MEAN CORPUSCULAR VOLUME 101 fl (80-97); RED BLOOD COUNT 3.73 10^6/uL (4.35-5.55); WHITE BLOOD COUNT 10.2 10^3/uL (4.0-10.5)
[2017-01-04 04:28] LABS: ALANINE AMINOTRANSFERASE 45 U/L (21-72); ALBUMIN 2.7 g/dL (3.5-5.0); ALKALINE PHOSPHATASE 426 U/L (38-126); ANION GAP 12 (5-19); ASPARTATE AMINO TRANSFERASE 144 U/L (17-59); BILIRUBIN,DIRECT 7.8 mg/dL (0.0-0.4); BILIRUBIN,TOTAL 8.9 mg/dL (0.2-1.3); BLOOD UREA NITROGEN 3 mg/dL (7-20); CALCIUM 7.8 mg/dL (8.4-10.2); CARBON DIOXIDE 22 mmol/L (22-30); CHLORIDE 103 mmol/L (98-107); CREATININE RESULT 0.32 mg/dL (0.52-1.25); GLUCOSE 112 mg/dL (75-110); MAGNESIUM 1.8 mg/dL (1.6-2.3); POTASSIUM 3.5 mmol/L (3.6-5.0); SODIUM 136.7 mmol/L (137-145); TOTAL PROTEIN 6.3 g/dL (6.3-8.2)
[2017-01-04 04:37] LABS: BAND NEUTROPHILS % (MANUAL) 1 % (3-5); BASOPHILS % (MANUAL) 0 % (0-2); EOSINOPHILS % (MANUAL) 2 % (0-6); LYMPHOCYTES % (MANUAL) 11 % (13-45); TOTAL CELLS COUNTED 100
[2017-01-04 04:39] LABS: ANISOCYTOSIS 1+; POIKILOCYTOSIS 1+; POLYCHROMASIA 2+; TARGET CELLS 1+; TOXIC VACUOLATION PRESENT
[2017-01-04] MEDS: POTASSI CL 20 MEQ/D5NS 1L 1,000 ML IV PRN (06:15)
[2017-01-04] MEDS: PANTOPRAZOLE SODIUM 40 MG VIAL IV SCH ×2 (09:07→21:42)
[2017-01-04] MEDS ORDERED: POTASSI CL 20 MEQ/50 ML RIDER 20 MEQ/50 ML RTUPB IV ONE (09:30)
[2017-01-04] MEDS: NORMAL SALINE 1000 ML 1,000 ML with POTASSIUM CHLORIDE 20 MEQ, MAGNESIUM SULFATE 8 MEQ,... IV PRN ×5 (12:52)
--- NOTE | 2017-01-04 15:34 | PDOC PROGRESS REPORT ---
Subjective Progress Note for:: 01/04/17 Subjective:: Patient is minimally responsive today so I'm not able to obtain history. Physical Exam Vital Signs: Temp Pulse Resp BP Pulse Ox 97.8 F 120 H 16 134/87 H 97 01/04/17 12:16 01/04/17 12:16 01/04/17 12:16 01/04/17 12:16 01/04/17 12:16 Intake & Output 01/03/17 01/04/17 01/05/17 06:59 06:59 06:59 Intake Total 3308 2661 Output Total 250 Balance 3058 2661 Weight 68.8 kg 67.7 kg GENERAL: No acute distress, disoriented, mumbling words. HEENT: Conjunctiva clear, nonicteric, moist mucous membranes, no JVD, midline trachea RESPIRATORY: Clear to auscultation bilaterally, no wheezes, no rhonchi CARDIAC: Regular rate and rhythm, no murmurs/gallops/rubs ABDOMEN: Soft, distended, diffuse tenderness, positive bowel sounds, no rebound , no guarding EXTREMETIES: No edema, cyanosis, clubbing NEUROLOGIC: Alert, minimally responsive, CN's grossly intact, no focal deficits SKIN: Jaundice Results Laboratory Results: 01/04/17 03:55 01/04/17 03:55 01/04/17 01/04/17 03:55 03:55 WBC 10.2 RBC 3.73 L Hgb 12.7 L Hct 37.7 L MCV 101 H MCH 34.2 H MCHC 33.8 RDW 16.0 H Plt Count 107 L Seg Neutrophils % Not Reportable Lymphocytes % Not Reportable Monocytes % Not Reportable Eosinophils % Not Reportable Basophils % Not Reportable Absolute Neutrophils Not Reportable Absolute Lymphocytes Not Reportable Absolute Monocytes Not Reportable Absolute Eosinophils Not Reportable Absolute Basophils Not Reportable Sodium 136.7 L Potassium 3.5 L Chloride 103 Carbon Dioxide 22 Anion Gap 12 BUN 3 L Creatinine 0.32 L Est GFR ( Amer) > 60 Est GFR (Non-Af Amer) > 60 Glucose 112 H Calcium 7.8 L Magnesium 1.8 Total Bilirubin 8.9 H AST 144 H ALT 45 Alkaline Phosphatase 426 H Total Protein 6.3 Albumin 2.7 L Impressions: Abdomen/Pelvis CT 01/01/17 00:00 IMPRESSION: Diffuse fatty infiltration of the liver with an enlarged liver. Generalized ascites. Abdomen Ultrasound 01/02/17 00:00 IMPRESSION: UNREMARKABLE ULTRASOUND OF THE GALLBLADDER. Assessment & Plan - Diagnosis (1) Systemic inflammatory response syndrome (SIRS) Is this a current diagnosis for this admission?: YesPlan: Likely secondary to spontaneous bacterial peritonitis. (2) Spontaneous bacterial peritonitis Is this a current diagnosis for this admission?: YesPlan: Continue IV Rocephin. CT scan of the abdomen shows ascites, however this is not enough to perform paracentesis. (3) Encephalopathy Is this a current diagnosis for this admission?: YesPlan: Possibly secondary to Wernicke's encephalopathy, hepatic encephalopathy, acute alcohol withdrawal. Continue thiamine. Continue lactulose. I would like to make patient NPO until mental status improves secondary to aspiration risk. I will have physical therapy evaluate once patient's mental status improves. (4) Delirium tremens Is this a current diagnosis for this admission?: YesPlan: Continue when necessary Ativan. (5) Thrombocytopenia Is this a current diagnosis for this admission?: YesPlan: Likely secondary to alcohol abuse and end-stage liver disease. (6) Hypokalemia Is this a current diagnosis for this admission?: Yes (7) Alcohol abuse Is this a current diagnosis for this admission?: Yes (8) Cirrhosis of liver Qualifiers: Hepatic cirrhosis type: alcoholic cirrhosis Is this a current diagnosis for this admission?: YesPlan: Patient has end-stage liver disease based on liver function studies, thrombocytopenia and coagulopathy. Dr. Gaines of GI consulted. I have had a long discussion with patient's and notified her of the advanced nature of patient's liver disease. We have discussed the importance of patient abstaining from alcohol after discharge. She states that he was told this last year when he was discharged from the hospital and he abstain from alcohol for 1 month and then resumed drinking again. (9) Hyponatremia Is this a current diagnosis for this admission?: Yes - Time Time Spent with patient: 35 or more minutes
[2017-01-04] MEDS: CEFTRIAXONE 2 GM/D5W RTU 2 GM/50 ML RTUPB IV SCH (21:42)
[2017-01-05] MEDS: POTASSI CL 20 MEQ/D5NS 1L 1,000 ML IV PRN (01:57)
[2017-01-05] MEDS: LORAZEPAM INJ 2 MG/1 ML VIAL IV PRN ×4 (05:02→23:54)
[2017-01-05] MEDS: LACTULOSE SYRUP 20 GM/30 ML UDCUP PO SCH ×4 (05:41→23:23)
[2017-01-05 08:05] LABS: HEMATOCRIT 36.8 % (37.9-51.0); HEMOGLOBIN 12.1 g/dL (13.5-17.0); HGB HCT DIFFERENCE -0.5; MEAN CORPUSCULAR VOLUME 103 fl (80-97); RED BLOOD COUNT 3.58 10^6/uL (4.35-5.55); RED CELL DISTRIBUTION WIDTH 16.1 % (11.5-14.0); WHITE BLOOD COUNT 12.2 10^3/uL (4.0-10.5)
[2017-01-05 08:19] LABS: ALANINE AMINOTRANSFERASE 39 U/L (21-72); ALBUMIN 2.5 g/dL (3.5-5.0); ALKALINE PHOSPHATASE 374 U/L (38-126); ANION GAP 10 (5-19); ASPARTATE AMINO TRANSFERASE 125 U/L (17-59); BILIRUBIN,DIRECT 7.4 mg/dL (0.0-0.4); BILIRUBIN,TOTAL 8.8 mg/dL (0.2-1.3); BLOOD UREA NITROGEN 3 mg/dL (7-20); CALCIUM 7.9 mg/dL (8.4-10.2); CARBON DIOXIDE 22 mmol/L (22-30); CHLORIDE 109 mmol/L (98-107); CREATININE RESULT 0.34 mg/dL (0.52-1.25); GLUCOSE 106 mg/dL (75-110); MAGNESIUM 1.8 mg/dL (1.6-2.3); POTASSIUM 3.5 mmol/L (3.6-5.0); SODIUM 140.7 mmol/L (137-145); TOTAL PROTEIN 5.8 g/dL (6.3-8.2)
[2017-01-05 08:37] LABS: BAND NEUTROPHILS % (MANUAL) 5 % (3-5); BASOPHILS % (MANUAL) 1 % (0-2); EOSINOPHILS % (MANUAL) 3 % (0-6); LYMPHOCYTES % (MANUAL) 12 % (13-45); POLYCHROMASIA SLIGHT; TOTAL CELLS COUNTED 100; TOXIC GRANULATION SLIGHT
[2017-01-05 08:38] LABS: ANISOCYTOSIS 1+; POIKILOCYTOSIS 1+; TARGET CELLS 1+
[2017-01-05] MEDS: PANTOPRAZOLE SODIUM 40 MG VIAL IV SCH ×2 (09:30→22:57)
[2017-01-05] MEDS ORDERED: THIAMINE HCL 100 MG in NORMAL SALINE 50 ML IV SCH (11:45)
[2017-01-05] MEDS ORDERED: POTASSI CL 20 MEQ/50 ML RIDER 20 MEQ/50 ML RTUPB IV ONE (12:30)
[2017-01-05] MEDS ORDERED: HYDROMORPHONE HCL INJ/PF 2 MG/ML AMPULE IV PRN (15:14)
--- NOTE | 2017-01-05 15:24 | PDOC PROGRESS REPORT ---
Subjective Progress Note for:: 01/05/17 Subjective:: Patient is minimally responsive. He is able to mumble brief statements. He states that he has abdominal discomfort. He states his name and the fact that he is in [facility]. Other than that I cannot obtain review of systems secondary to encephalopathic state. Physical Exam Vital Signs: Temp Pulse Resp BP Pulse Ox 97.8 F 111 H 19 156/94 H 99 01/05/17 11:24 01/05/17 11:24 01/05/17 11:24 01/05/17 11:24 01/05/17 11:24 Intake & Output 01/04/17 01/05/17 01/06/17 06:59 06:59 06:59 Intake Total 2661 1848 0 Balance 2661 1848 0 Weight 67.7 kg 67.7 kg GENERAL: No acute distress, disoriented, mumbling words. HEENT: Conjunctiva clear, nonicteric, moist mucous membranes, no JVD, midline trachea RESPIRATORY: Clear to auscultation bilaterally, no wheezes, no rhonchi CARDIAC: Regular rate and rhythm, no murmurs/gallops/rubs ABDOMEN: Soft, distended, diffuse tenderness, positive bowel sounds, no rebound , no guarding EXTREMETIES: No edema, cyanosis, clubbing NEUROLOGIC: Alert, minimally responsive, CN's grossly intact, no focal deficits SKIN: Jaundice Results Laboratory Results: 01/05/17 06:57 01/05/17 06:57 01/05/17 01/05/17 06:57 06:57 WBC 12.2 H RBC 3.58 L Hgb 12.1 L Hct 36.8 L MCV 103 H MCH 34.0 H MCHC 33.0 RDW 16.1 H Plt Count 118 L Seg Neutrophils % Not Reportable Lymphocytes % Not Reportable Monocytes % Not Reportable Eosinophils % Not Reportable Basophils % Not Reportable Absolute Neutrophils Not Reportable Absolute Lymphocytes Not Reportable Absolute Monocytes Not Reportable Absolute Eosinophils Not Reportable Absolute Basophils Not Reportable Sodium 140.7 Potassium 3.5 L Chloride 109 H Carbon Dioxide 22 Anion Gap 10 BUN 3 L Creatinine 0.34 L Est GFR ( Amer) > 60 Est GFR (Non-Af Amer) > 60 Glucose 106 Calcium 7.9 L Magnesium 1.8 Total Bilirubin 8.8 H AST 125 H ALT 39 Alkaline Phosphatase 374 H Total Protein 5.8 L Albumin 2.5 L 12/31/16 10:32 Blood Blood Culture - Final NO GROWTH IN 5 DAYS 12/31/16 09:21 Blood Blood Culture - Final NO GROWTH IN 5 DAYS Impressions: Abdomen/Pelvis CT 01/01/17 00:00 IMPRESSION: Diffuse fatty infiltration of the liver with an enlarged liver. Generalized ascites. Abdomen Ultrasound 01/02/17 00:00 IMPRESSION: UNREMARKABLE ULTRASOUND OF THE GALLBLADDER. Assessment & Plan - Diagnosis (1) Systemic inflammatory response syndrome (SIRS) Is this a current diagnosis for this admission?: YesPlan: Likely secondary to spontaneous bacterial peritonitis. (2) Spontaneous bacterial peritonitis Is this a current diagnosis for this admission?: YesPlan: Continue IV Rocephin until 01/11/2017, then convert to oral regimen if patient' s encephalopathy improves. CT scan of the abdomen shows ascites, however this is not enough to perform paracentesis. (3) Encephalopathy Is this a current diagnosis for this admission?: YesPlan: Possibly secondary to Wernicke's encephalopathy, hepatic encephalopathy, acute alcohol withdrawal. Continue thiamine. Continue lactulose. Continue NPO until mental status improves secondary to aspiration risk. I will have physical therapy evaluate once patient's mental status improves. (4) Delirium tremens Is this a current diagnosis for this admission?: YesPlan: Continue when necessary Ativan. (5) Thrombocytopenia Is this a current diagnosis for this admission?: YesPlan: Improving. Likely secondary to alcohol abuse and end-stage liver disease. (6) Hypokalemia Is this a current diagnosis for this admission?: Yes (7) Alcohol abuse Is this a current diagnosis for this admission?: YesPlan: Continue to treat alcohol withdrawal with when necessary IV Ativan. Continue thiamine supplementation. (8) Cirrhosis of liver Qualifiers: Hepatic cirrhosis type: alcoholic cirrhosis Is this a current diagnosis for this admission?: YesPlan: Patient has end-stage liver disease based on liver function studies, thrombocytopenia and coagulopathy. Dr. Gaines of GI consulted. I have had a long discussion with patient's and notified her of the advanced nature of patient's liver disease. We have discussed the importance of patient abstaining from alcohol after discharge. She states that he was told this last year when he was discharged from the hospital and he abstain from alcohol for 1 month and then resumed drinking again. (9) Hyponatremia Is this a current diagnosis for this admission?: Yes - Time Time Spent with patient: 25-34 minutes
[2017-01-05] MEDS: NORMAL SALINE 1000 ML 1,000 ML with POTASSIUM CHLORIDE 20 MEQ, MAGNESIUM SULFATE 8 MEQ,... IV PRN ×5 (15:43)
[2017-01-05] MEDS: CEFTRIAXONE 2 GM/D5W RTU 2 GM/50 ML RTUPB IV SCH (22:57)
[2017-01-06] MEDS: POTASSI CL 20 MEQ/D5NS 1L 1,000 ML IV PRN ×2 (01:00→19:21)
[2017-01-06] MEDS: LACTULOSE SYRUP 20 GM/30 ML UDCUP PO SCH ×3 (05:37→22:08)
[2017-01-06] MEDS: LORAZEPAM INJ 2 MG/1 ML VIAL IV PRN ×3 (05:38→19:38)
[2017-01-06 06:33] LABS: PROTHROMBIN TIME 15.5 SEC (11.4-15.4)
[2017-01-06 06:34] LABS: PARTIAL THROMBOPLASTIN TIME 34.7 SEC (23.5-35.8)
[2017-01-06 07:09] LABS: HEMATOCRIT 36.5 % (37.9-51.0); HEMOGLOBIN 12.3 g/dL (13.5-17.0); HGB HCT DIFFERENCE 0.4; MEAN CORPUSCULAR HEMOGLOBIN 34.8 pg (27.0-33.4); MEAN CORPUSCULAR HGB CONC 33.7 g/dL (32.0-36.0); MEAN CORPUSCULAR VOLUME 104 fl (80-97); RED BLOOD COUNT 3.53 10^6/uL (4.35-5.55); RED CELL DISTRIBUTION WIDTH 16.2 % (11.5-14.0)
[2017-01-06 07:20] LABS: ALANINE AMINOTRANSFERASE 45 U/L (21-72); ALBUMIN 2.6 g/dL (3.5-5.0); ALKALINE PHOSPHATASE 351 U/L (38-126); ANION GAP 11 (5-19); ASPARTATE AMINO TRANSFERASE 112 U/L (17-59); BILIRUBIN,DIRECT 7.4 mg/dL (0.0-0.4); BILIRUBIN,TOTAL 8.7 mg/dL (0.2-1.3); BLOOD UREA NITROGEN 3 mg/dL (7-20); CALCIUM 8.2 mg/dL (8.4-10.2); CARBON DIOXIDE 20 mmol/L (22-30); CHLORIDE 112 mmol/L (98-107); CREATININE RESULT 0.35 mg/dL (0.52-1.25); GLUCOSE 94 mg/dL (75-110); POTASSIUM 3.7 mmol/L (3.6-5.0); SODIUM 143.4 mmol/L (137-145); TOTAL PROTEIN 5.9 g/dL (6.3-8.2)
[2017-01-06 07:38] LABS: ANISOCYTOSIS 1+; BASOPHILS % (MANUAL) 0 % (0-2); EOSINOPHILS % (MANUAL) 2 % (0-6); LYMPHOCYTES % (MANUAL) 10 % (13-45); POLYCHROMASIA SLIGHT; TOTAL CELLS COUNTED 100
[2017-01-06 07:39] LABS: TARGET CELLS SLIGHT
[2017-01-06] MEDS: NORMAL SALINE 1000 ML 1,000 ML with POTASSIUM CHLORIDE 20 MEQ, MAGNESIUM SULFATE 8 MEQ,... IV PRN ×5 (09:43)
[2017-01-06 10:00] LABS: FREE T3 3.4 pg/mL (2.77-5.27)
--- NOTE | 2017-01-06 18:34 | PDOC PROGRESS REPORT ---
Subjective Progress Note for:: 01/06/17 Subjective:: Patient is slightly more responsive today. He is able to mumble brief statements. He states that he has abdominal discomfort. He states his name and the fact that he is in [facility]. Other than that I cannot obtain review of systems secondary to encephalopathic state. Physical Exam Vital Signs: Temp Pulse Resp BP Pulse Ox 98.3 F 86 22 H 156/86 H 98 01/06/17 17:28 01/06/17 17:28 01/06/17 17:28 01/06/17 17:28 01/06/17 17:28 Intake & Output 01/05/17 01/06/17 01/07/17 06:59 06:59 06:59 Intake Total 1848 2535 1300 Balance 1848 2535 1300 Weight 67.7 kg 67.7 kg GENERAL: No acute distress, disoriented, mumbling words. HEENT: Conjunctiva clear, nonicteric, moist mucous membranes, no JVD, midline trachea RESPIRATORY: Clear to auscultation bilaterally, no wheezes, no rhonchi CARDIAC: Regular rate and rhythm, no murmurs/gallops/rubs ABDOMEN: Soft, distended, diffuse tenderness, positive bowel sounds, no rebound , no guarding EXTREMETIES: No edema, cyanosis, clubbing NEUROLOGIC: Alert, minimally responsive, CN's grossly intact, no focal deficits SKIN: Jaundice Results Laboratory Results: 01/06/17 06:55 01/06/17 06:55 01/06/17 01/06/17 01/06/17 06:55 06:55 06:55 WBC 11.0 H RBC 3.53 L Hgb 12.3 L Hct 36.5 L MCV 104 H MCH 34.8 H MCHC 33.7 RDW 16.2 H Plt Count 130 L Seg Neutrophils % Not Reportable Lymphocytes % Not Reportable Monocytes % Not Reportable Eosinophils % Not Reportable Basophils % Not Reportable Absolute Neutrophils Not Reportable Absolute Lymphocytes Not Reportable Absolute Monocytes Not Reportable Absolute Eosinophils Not Reportable Absolute Basophils Not Reportable Sodium 143.4 Potassium 3.7 Chloride 112 H Carbon Dioxide 20 L Anion Gap 11 BUN 3 L Creatinine 0.35 L Est GFR ( Amer) > 60 Est GFR (Non-Af Amer) > 60 Glucose 94 Calcium 8.2 L Magnesium 2.0 Total Bilirubin 8.7 H AST 112 H ALT 45 Alkaline Phosphatase 351 H Ammonia 41.0 H Total Protein 5.9 L Albumin 2.6 L Vitamin B12 TSH Free T4 Free T3 pg/mL 01/06/17 01/06/17 01/06/17 06:55 06:55 06:55 WBC RBC Hgb Hct MCV MCH MCHC RDW Plt Count Seg Neutrophils % Lymphocytes % Monocytes % Eosinophils % Basophils % Absolute Neutrophils Absolute Lymphocytes Absolute Monocytes Absolute Eosinophils Absolute Basophils Sodium Potassium Chloride Carbon Dioxide Anion Gap BUN Creatinine Est GFR ( Amer) Est GFR (Non-Af Amer) Glucose Calcium Magnesium Total Bilirubin AST ALT Alkaline Phosphatase Ammonia Total Protein Albumin Vitamin B12 > 1000.0 H TSH 5.55 H Free T4 2.32 H Free T3 pg/mL 3.40 Impressions: Abdomen/Pelvis CT 01/01/17 00:00 IMPRESSION: Diffuse fatty infiltration of the liver with an enlarged liver. Generalized ascites. Abdomen Ultrasound 01/02/17 00:00 IMPRESSION: UNREMARKABLE ULTRASOUND OF THE GALLBLADDER. Assessment & Plan - Diagnosis (1) Systemic inflammatory response syndrome (SIRS) Is this a current diagnosis for this admission?: YesPlan: Likely secondary to spontaneous bacterial peritonitis. (2) Spontaneous bacterial peritonitis Is this a current diagnosis for this admission?: YesPlan: Continue IV Rocephin until 01/11/2017, then convert to oral regimen if patient' s encephalopathy improves. CT scan of the abdomen shows ascites, however this is not enough to perform paracentesis for culture. (3) Encephalopathy Is this a current diagnosis for this admission?: YesPlan: Possibly secondary to Wernicke's encephalopathy, hepatic encephalopathy, acute alcohol withdrawal. Continue thiamine. Continue lactulose. Continue NPO until mental status improves secondary to aspiration risk. I will have physical therapy evaluate once patient's mental status improves. (4) Delirium tremens Is this a current diagnosis for this admission?: YesPlan: Continue when necessary Ativan. (5) Thrombocytopenia Is this a current diagnosis for this admission?: YesPlan: Improving. Likely secondary to alcohol abuse and end-stage liver disease. (6) Hypokalemia Is this a current diagnosis for this admission?: Yes (7) Alcohol abuse Is this a current diagnosis for this admission?: YesPlan: Continue to treat alcohol withdrawal with when necessary IV Ativan. Continue thiamine supplementation. (8) Cirrhosis of liver Qualifiers: Hepatic cirrhosis type: alcoholic cirrhosis Is this a current diagnosis for this admission?: YesPlan: Patient has end-stage liver disease based on liver function studies, thrombocytopenia and coagulopathy. Dr. Gaines of GI consulted. I have had a long discussion with patient's and notified her of the advanced nature of patient's liver disease. We have discussed the importance of patient abstaining from alcohol after discharge. She states that he was told this last year when he was discharged from the hospital and he abstain from alcohol for 1 month and then resumed drinking again. (9) Hyponatremia Is this a current diagnosis for this admission?: Yes - Time Time Spent with patient: 35 or more minutes
[2017-01-06] MEDS: CEFTRIAXONE 2 GM/D5W RTU 2 GM/50 ML RTUPB IV SCH (22:06)
[2017-01-07] MEDS: LORAZEPAM INJ 2 MG/1 ML VIAL IV PRN ×3 (02:22→14:54)
[2017-01-07] MEDS: LACTULOSE SYRUP 20 GM/30 ML UDCUP PO SCH ×3 (05:34→21:21)
[2017-01-07] MEDS: POTASSI CL 20 MEQ/D5NS 1L 1,000 ML IV PRN ×2 (05:34→20:15)
[2017-01-07 06:38] LABS: ALANINE AMINOTRANSFERASE 40 U/L (21-72); ALBUMIN 2.5 g/dL (3.5-5.0); ALKALINE PHOSPHATASE 320 U/L (38-126); ANION GAP 10 (5-19); ASPARTATE AMINO TRANSFERASE 104 U/L (17-59); BILIRUBIN,DIRECT 5.9 mg/dL (0.0-0.4); BILIRUBIN,TOTAL 7.3 mg/dL (0.2-1.3); BLOOD UREA NITROGEN 4 mg/dL (7-20); CALCIUM 8.1 mg/dL (8.4-10.2); CARBON DIOXIDE 20 mmol/L (22-30); CHLORIDE 112 mmol/L (98-107); GLUCOSE 94 mg/dL (75-110); POTASSIUM 3.8 mmol/L (3.6-5.0); SODIUM 141.7 mmol/L (137-145); TOTAL PROTEIN 5.7 g/dL (6.3-8.2)
[2017-01-07 06:50] LABS: HEMATOCRIT 38.1 % (37.9-51.0); HEMOGLOBIN 12.6 g/dL (13.5-17.0); HGB HCT DIFFERENCE -0.3; MEAN CORPUSCULAR HEMOGLOBIN 34.3 pg (27.0-33.4); MEAN CORPUSCULAR HGB CONC 33.2 g/dL (32.0-36.0); MEAN CORPUSCULAR VOLUME 103 fl (80-97); RED BLOOD COUNT 3.69 10^6/uL (4.35-5.55); RED CELL DISTRIBUTION WIDTH 15.8 % (11.5-14.0); WHITE BLOOD COUNT 10.9 10^3/uL (4.0-10.5)
[2017-01-07 07:10] LABS: BAND NEUTROPHILS % (MANUAL) 3 % (3-5); BASOPHILS % (MANUAL) 0 % (0-2); EOSINOPHILS % (MANUAL) 2 % (0-6); LYMPHOCYTES % (MANUAL) 12 % (13-45); TOTAL CELLS COUNTED 100
[2017-01-07 07:11] LABS: TOXIC GRANULATION SLIGHT
[2017-01-07 07:12] LABS: ANISOCYTOSIS SLIGHT; TARGET CELLS SLIGHT
[2017-01-07] MEDS: NORMAL SALINE 1000 ML 1,000 ML with POTASSIUM CHLORIDE 20 MEQ, MAGNESIUM SULFATE 8 MEQ,... IV PRN ×5 (11:23)
--- NOTE | 2017-01-07 17:08 | PDOC PROGRESS REPORT ---
Subjective Progress Note for:: 01/07/17 Subjective:: Patient is slightly more responsive today. He is able to mumble brief statements. He states that he has abdominal discomfort. He states his name and the fact that he is in [facility]. Other than that I cannot obtain review of systems secondary to encephalopathic state. Physical Exam Vital Signs: Temp Pulse Resp BP Pulse Ox 97.7 F 88 24 H 144/76 H 96 01/07/17 15:27 01/07/17 15:27 01/07/17 15:27 01/07/17 15:27 01/07/17 15:27 Intake & Output 01/06/17 01/07/17 01/08/17 06:59 06:59 06:59 Intake Total 2535 2420 1000 Balance 2535 2420 1000 Weight 67.7 kg 74.4 kg GENERAL: No acute distress, disoriented, mumbling words. HEENT: Conjunctiva clear, nonicteric, moist mucous membranes, no JVD, midline trachea RESPIRATORY: Clear to auscultation bilaterally, no wheezes, no rhonchi CARDIAC: Regular rate and rhythm, no murmurs/gallops/rubs ABDOMEN: Soft, distended, diffuse tenderness, positive bowel sounds, no rebound , no guarding EXTREMETIES: No edema, cyanosis, clubbing NEUROLOGIC: Alert, minimally responsive, CN's grossly intact, no focal deficits SKIN: Jaundice Results Laboratory Results: 01/07/17 05:50 01/07/17 05:50 01/07/17 01/07/17 05:50 05:50 WBC 10.9 H RBC 3.69 L Hgb 12.6 L Hct 38.1 MCV 103 H MCH 34.3 H MCHC 33.2 RDW 15.8 H Plt Count 140 L Seg Neutrophils % Not Reportable Lymphocytes % Not Reportable Monocytes % Not Reportable Eosinophils % Not Reportable Basophils % Not Reportable Absolute Neutrophils Not Reportable Absolute Lymphocytes Not Reportable Absolute Monocytes Not Reportable Absolute Eosinophils Not Reportable Absolute Basophils Not Reportable Sodium 141.7 Potassium 3.8 Chloride 112 H Carbon Dioxide 20 L Anion Gap 10 BUN 4 L Creatinine 0.40 L Est GFR ( Amer) > 60 Est GFR (Non-Af Amer) > 60 Glucose 94 Calcium 8.1 L Total Bilirubin 7.3 H AST 104 H ALT 40 Alkaline Phosphatase 320 H Total Protein 5.7 L Albumin 2.5 L 12/31/16 10:32 Blood Blood Culture - Final Peptostreptococcus Species 12/31/16 09:21 Blood Blood Culture - Final NO GROWTH IN 5 DAYS Impressions: Abdomen/Pelvis CT 01/01/17 00:00 IMPRESSION: Diffuse fatty infiltration of the liver with an enlarged liver. Generalized ascites. Abdomen Ultrasound 01/02/17 00:00 IMPRESSION: UNREMARKABLE ULTRASOUND OF THE GALLBLADDER. Assessment & Plan - Diagnosis (1) Systemic inflammatory response syndrome (SIRS) Is this a current diagnosis for this admission?: YesPlan: Likely secondary to spontaneous bacterial peritonitis. (2) Spontaneous bacterial peritonitis Is this a current diagnosis for this admission?: YesPlan: Continue IV Rocephin until 01/11/2017, then convert to oral regimen if patient' s encephalopathy improves. CT scan of the abdomen shows ascites, however this is not enough to perform paracentesis for culture. (3) Encephalopathy Is this a current diagnosis for this admission?: YesPlan: Possibly secondary to Wernicke's encephalopathy, hepatic encephalopathy, acute alcohol withdrawal. Continue thiamine. Continue lactulose. Continue NPO until mental status improves secondary to aspiration risk. Increase IV fluid rate to 150 mL per hour. Decrease Dilaudid to 0.5 mg every 4 hours when necessary. I will have physical therapy evaluate once patient's mental status improves. (4) Delirium tremens Is this a current diagnosis for this admission?: YesPlan: Continue when necessary Ativan. (5) Thrombocytopenia Is this a current diagnosis for this admission?: YesPlan: Improving. Likely secondary to alcohol abuse and end-stage liver disease. (6) Hypokalemia Is this a current diagnosis for this admission?: Yes (7) Alcohol abuse Is this a current diagnosis for this admission?: YesPlan: Continue to treat alcohol withdrawal with when necessary IV Ativan. Continue thiamine supplementation. (8) Cirrhosis of liver Qualifiers: Hepatic cirrhosis type: alcoholic cirrhosis Is this a current diagnosis for this admission?: YesPlan: Patient has end-stage liver disease based on liver function studies, thrombocytopenia and coagulopathy. Dr. Gaines of GI consulted. I have had a long discussion with patient's and notified her of the advanced nature of patient's liver disease. We have discussed the importance of patient abstaining from alcohol after discharge. She states that he was told this last year when he was discharged from the hospital and he abstain from alcohol for 1 month and then resumed drinking again. (9) Hyponatremia Is this a current diagnosis for this admission?: Yes (10) Abnormal thyroid function test Is this a current diagnosis for this admission?: YesPlan: Repeat to 3 weeks when acute illness resolved. - Time Time Spent with patient: 25-34 minutes
[2017-01-07] MEDS: HYDROMORPHONE HCL INJ/PF 2 MG/ML AMPULE IV PRN ×2 (17:41→21:27)
[2017-01-08] MEDS: HYDROMORPHONE HCL INJ/PF 2 MG/ML AMPULE IV PRN ×4 (02:54→22:33)
[2017-01-08] MEDS: POTASSI CL 20 MEQ/D5NS 1L 1,000 ML IV PRN ×2 (04:26→15:58)
[2017-01-08] MEDS: LACTULOSE SYRUP 20 GM/30 ML UDCUP PO SCH ×3 (05:00→22:24)
[2017-01-08 05:21] LABS: HEMATOCRIT 35.3 % (37.9-51.0); HEMOGLOBIN 11.9 g/dL (13.5-17.0); HGB HCT DIFFERENCE 0.4; MEAN CORPUSCULAR HGB CONC 33.7 g/dL (32.0-36.0); MEAN CORPUSCULAR VOLUME 104 fl (80-97); RED CELL DISTRIBUTION WIDTH 15.8 % (11.5-14.0); WHITE BLOOD COUNT 12.6 10^3/uL (4.0-10.5)
[2017-01-08 05:27] LABS: ALANINE AMINOTRANSFERASE 41 U/L (21-72); ALBUMIN 2.5 g/dL (3.5-5.0); ALKALINE PHOSPHATASE 283 U/L (38-126); ANION GAP 10 (5-19); ASPARTATE AMINO TRANSFERASE 106 U/L (17-59); BILIRUBIN,DIRECT 6.3 mg/dL (0.0-0.4); BILIRUBIN,TOTAL 7.7 mg/dL (0.2-1.3); BLOOD UREA NITROGEN 5 mg/dL (7-20); CALCIUM 8.1 mg/dL (8.4-10.2); CARBON DIOXIDE 20 mmol/L (22-30); CHLORIDE 114 mmol/L (98-107); CREATININE RESULT 0.39 mg/dL (0.52-1.25); GLUCOSE 97 mg/dL (75-110); POTASSIUM 3.7 mmol/L (3.6-5.0); SODIUM 143.5 mmol/L (137-145); TOTAL PROTEIN 5.7 g/dL (6.3-8.2)
[2017-01-08 05:58] LABS: BAND NEUTROPHILS % (MANUAL) 3 % (3-5); BASOPHILS % (MANUAL) 0 % (0-2); EOSINOPHILS % (MANUAL) 5 % (0-6); LYMPHOCYTES % (MANUAL) 6 % (13-45); TOTAL CELLS COUNTED 100
[2017-01-08 06:00] LABS: TOXIC GRANULATION SLIGHT
[2017-01-08 06:01] LABS: OVALOCYTES SLIGHT; POIKILOCYTOSIS 1+; POLYCHROMASIA SLIGHT; SCHISTOCYTES SLIGHT; TEAR DROP CELLS SLIGHT; TOXIC VACUOLATION PRESENT
[2017-01-08] MEDS ORDERED: METOPROLOL TARTRATE PF/INJ 5 MG/5 ML SDV IV PRN (12:02)
[2017-01-08] MEDS ORDERED: CIPROFLOXACIN 400 MG/D5W RTU 400 MG/200 ML RTUPB IV ONE (13:00)
[2017-01-08] MEDS: METRONIDAZOLE 500 MG/NS RTU 100 ML IV SCH ×2 (14:23→18:53)
--- NOTE | 2017-01-08 15:49 | PDOC PROGRESS REPORT ---
Subjective Progress Note for:: 01/08/17 Subjective:: Patient continues to be slightly more improved from a mental status standpoint daily. He is able to respond to questions more clearly. He complains of abdominal fullness and discomfort. Physical Exam Vital Signs: Temp Pulse Resp BP Pulse Ox 97.6 F 90 18 141/76 H 96 01/08/17 12:06 01/08/17 12:06 01/08/17 12:06 01/08/17 12:06 01/08/17 12:06 Intake & Output 01/07/17 01/08/17 01/09/17 06:59 06:59 06:59 Intake Total 2420 3736 Balance 2420 3736 Weight 74.4 kg 73.1 kg GENERAL: No acute distress HEENT: Conjunctiva clear, nonicteric, moist mucous membranes, no JVD, midline trachea RESPIRATORY: Clear to auscultation bilaterally, no wheezes, no rhonchi CARDIAC: Regular rate and rhythm, no murmurs/gallops/rubs ABDOMEN: Soft, distended, diffuse tenderness, positive bowel sounds, no rebound , no guarding EXTREMETIES: No edema, cyanosis, clubbing NEUROLOGIC: Drowsy, responsive, oriented to person/place/year, CN's grossly intact, no focal deficits SKIN: Jaundice Results Laboratory Results: 01/08/17 04:23 01/08/17 04:23 01/08/17 01/08/17 04:23 04:23 WBC 12.6 H RBC 3.40 L Hgb 11.9 L Hct 35.3 L MCV 104 H MCH 35.0 H MCHC 33.7 RDW 15.8 H Plt Count 149 L Seg Neutrophils % Not Reportable Lymphocytes % Not Reportable Monocytes % Not Reportable Eosinophils % Not Reportable Basophils % Not Reportable Absolute Neutrophils Not Reportable Absolute Lymphocytes Not Reportable Absolute Monocytes Not Reportable Absolute Eosinophils Not Reportable Absolute Basophils Not Reportable Sodium 143.5 Potassium 3.7 Chloride 114 H Carbon Dioxide 20 L Anion Gap 10 BUN 5 L Creatinine 0.39 L Est GFR ( Amer) > 60 Est GFR (Non-Af Amer) > 60 Glucose 97 Calcium 8.1 L Total Bilirubin 7.7 H AST 106 H ALT 41 Alkaline Phosphatase 283 H Total Protein 5.7 L Albumin 2.5 L 12/31/16 10:32 Blood Blood Culture - Final Peptostreptococcus Species 12/31/16 09:21 Blood Blood Culture - Final NO GROWTH IN 5 DAYS Impressions: Abdomen/Pelvis CT 01/01/17 00:00 IMPRESSION: Diffuse fatty infiltration of the liver with an enlarged liver. Generalized ascites. Abdomen Ultrasound 01/02/17 00:00 IMPRESSION: UNREMARKABLE ULTRASOUND OF THE GALLBLADDER. Assessment & Plan - Diagnosis (1) Systemic inflammatory response syndrome (SIRS) Is this a current diagnosis for this admission?: YesPlan: Likely secondary to spontaneous bacterial peritonitis. (2) Spontaneous bacterial peritonitis Is this a current diagnosis for this admission?: YesPlan: Discontinue Rocephin, start IV Cipro and IV Flagyl until 01/14/2017, then convert to oral regimen if patient's encephalopathy improves. Patient's ascites is clinically larger today so I will order diagnostics/therapeutic paracentesis. (3) Encephalopathy Is this a current diagnosis for this admission?: YesPlan: Possibly secondary to Wernicke's encephalopathy, hepatic encephalopathy, acute alcohol withdrawal. Continue thiamine. Continue lactulose. Continue NPO until mental status improves secondary to aspiration risk. Continue IV fluids. Decreased Dilaudid to 0.5 mg every 4 hours when necessary. I will have physical therapy evaluate once patient's mental status improves. (4) Delirium tremens Is this a current diagnosis for this admission?: Yes (5) Thrombocytopenia Is this a current diagnosis for this admission?: YesPlan: Improving. Likely secondary to alcohol abuse and end-stage liver disease. (6) Hypokalemia Is this a current diagnosis for this admission?: Yes (7) Alcohol abuse Is this a current diagnosis for this admission?: Yes (8) Cirrhosis of liver Qualifiers: Hepatic cirrhosis type: alcoholic cirrhosis Is this a current diagnosis for this admission?: YesPlan: Patient has end-stage liver disease based on liver function studies, thrombocytopenia and coagulopathy. Dr. Gaines of GI consulted. I have had a long discussion with patient's and notified her of the advanced nature of patient's liver disease. We have discussed the importance of patient abstaining from alcohol after discharge. She states that he was told this last year when he was discharged from the hospital and he abstain from alcohol for 1 month and then resumed drinking again. (9) Hyponatremia Is this a current diagnosis for this admission?: Yes (10) Abnormal thyroid function test Is this a current diagnosis for this admission?: YesPlan: Repeat to 3 weeks when acute illness resolved. - Time Time Spent with patient: 35 or more minutes
[2017-01-08] MEDS ORDERED: PANTOPRAZOLE SODIUM 40 MG VIAL IV ONE (16:30)
[2017-01-08] MEDS: THIAMINE HCL 100 MG in NORMAL SALINE 50 ML IV SCH (17:37)
[2017-01-08] MEDS: LORAZEPAM INJ 2 MG/1 ML VIAL IV PRN (19:26)
[2017-01-08] MEDS ORDERED: LORAZEPAM INJ 2 MG/1 ML VIAL ONE (20:28)
[2017-01-08] MEDS ORDERED: LORAZEPAM INJ 2 MG/1 ML VIAL IV ONE (21:00)
[2017-01-08] MEDS: CIPROFLOXACIN 400 MG/D5W RTU 400 MG/200 ML RTUPB IV SCH (22:24)
[2017-01-09] MEDS: METRONIDAZOLE 500 MG/NS RTU 100 ML IV SCH ×4 (00:49→19:10)
[2017-01-09] MEDS: HYDROMORPHONE HCL INJ/PF 2 MG/ML AMPULE IV PRN (01:55)
[2017-01-09] MEDS: LACTULOSE SYRUP 20 GM/30 ML UDCUP PO SCH ×3 (05:22→23:03)
[2017-01-09] MEDS: POTASSI CL 20 MEQ/D5NS 1L 1,000 ML IV PRN ×2 (05:22→23:03)
[2017-01-09] MEDS: PANTOPRAZOLE SODIUM 40 MG VIAL IV SCH ×2 (05:23→19:10)
[2017-01-09 05:54] LABS: HEMATOCRIT 38.8 % (37.9-51.0); HEMOGLOBIN 12.9 g/dL (13.5-17.0); HGB HCT DIFFERENCE -0.1; MEAN CORPUSCULAR HEMOGLOBIN 34.8 pg (27.0-33.4); MEAN CORPUSCULAR HGB CONC 33.4 g/dL (32.0-36.0); MEAN CORPUSCULAR VOLUME 104 fl (80-97); RED BLOOD COUNT 3.72 10^6/uL (4.35-5.55); RED CELL DISTRIBUTION WIDTH 15.7 % (11.5-14.0)
[2017-01-09 06:13] LABS: ALANINE AMINOTRANSFERASE 41 U/L (21-72); ALKALINE PHOSPHATASE 309 U/L (38-126); ANION GAP 12 (5-19); ASPARTATE AMINO TRANSFERASE 119 U/L (17-59); BILIRUBIN,DIRECT 7.7 mg/dL (0.0-0.4); BILIRUBIN,TOTAL 9.3 mg/dL (0.2-1.3); BLOOD UREA NITROGEN 3 mg/dL (7-20); CALCIUM 8.5 mg/dL (8.4-10.2); CARBON DIOXIDE 21 mmol/L (22-30); CHLORIDE 112 mmol/L (98-107); CREATININE RESULT 0.34 mg/dL (0.52-1.25); GLUCOSE 102 mg/dL (75-110); SODIUM 144.7 mmol/L (137-145); TOTAL PROTEIN 6.8 g/dL (6.3-8.2)
[2017-01-09 06:37] LABS: BAND NEUTROPHILS % (MANUAL) 2 % (3-5); BASOPHILS % (MANUAL) 0 % (0-2); EOSINOPHILS % (MANUAL) 2 % (0-6); LYMPHOCYTES % (MANUAL) 10 % (13-45); TOTAL CELLS COUNTED 100
[2017-01-09 06:40] LABS: ANISOCYTOSIS 1+; HYPOCHROMASIA SLIGHT; POLYCHROMASIA SLIGHT; TARGET CELLS SLIGHT; TOXIC GRANULATION SLIGHT; TOXIC VACUOLATION PRESENT
[2017-01-09] MEDS: CIPROFLOXACIN 400 MG/D5W RTU 400 MG/200 ML RTUPB IV SCH ×2 (12:20→23:03)
[2017-01-09 16:06] LABS: FLUID TYPE PERITONEAL
[2017-01-09 16:07] LABS: FLUID APPEARANCE CLEAR; FLUID RBC DILUENT USED NONE USED; FLUID RBC DILUTION FACTOR 1; FLUID RBC SIDE 1 252; FLUID RBC SIDE 2 240
[2017-01-09 16:08] LABS: TOTAL RBC SQUARES COUNTED FLD 225
[2017-01-09] MEDS: THIAMINE HCL 100 MG in NORMAL SALINE 50 ML IV SCH (19:10)
--- NOTE | 2017-01-09 22:01 | PDOC PROGRESS REPORT ---
Subjective Progress Note for:: 01/09/17 Subjective:: Patient attempted to get up after paracentesis without assistance and fell. No injury. Continued abdominal pain. No nausea, vomiting. Physical Exam Vital Signs: Temp Pulse Resp BP Pulse Ox 98.6 F 96 20 149/85 H 100 01/09/17 20:21 01/09/17 20:21 01/09/17 20:21 01/09/17 20:21 01/09/17 20:21 Intake & Output 01/08/17 01/09/17 01/10/17 06:59 06:59 06:59 Intake Total 3736 2794 1500 Balance 3736 2794 1500 Weight 73.1 kg 69 kg GENERAL: No acute distress HEENT: Conjunctiva clear, nonicteric, moist mucous membranes, no JVD, midline trachea RESPIRATORY: Clear to auscultation bilaterally, no wheezes, no rhonchi CARDIAC: Regular rate and rhythm, no murmurs/gallops/rubs ABDOMEN: Soft, distended, diffuse tenderness, positive bowel sounds, no rebound , no guarding EXTREMETIES: No edema, cyanosis, clubbing NEUROLOGIC: Drowsy, responsive, oriented to person/place/year, CN's grossly intact, no focal deficits SKIN: Jaundice Results Laboratory Results: 01/09/17 05:17 01/09/17 05:17 01/09/17 01/09/17 01/09/17 05: 05:17 14:51 WBC 17.0 H RBC 3.72 L Hgb 12.9 L Hct 38.8 MCV 104 H MCH 34.8 H MCHC 33.4 RDW 15.7 H Plt Count 157 Seg Neutrophils % Not Reportable Lymphocytes % Not Reportable Monocytes % Not Reportable Eosinophils % Not Reportable Basophils % Not Reportable Absolute Neutrophils Not Reportable Absolute Lymphocytes Not Reportable Absolute Monocytes Not Reportable Absolute Eosinophils Not Reportable Absolute Basophils Not Reportable Sodium 144.7 Potassium 4.0 Chloride 112 H Carbon Dioxide 21 L Anion Gap 12 BUN 3 L Creatinine 0.34 L Est GFR ( Amer) > 60 Est GFR (Non-Af Amer) > 60 Glucose 102 Calcium 8.5 Total Bilirubin 9.3 H AST 119 H ALT 41 Alkaline Phosphatase 309 H Total Protein 6.8 Albumin 3.0 L Fluid Type PERITONEAL Fluid Source ASCITES Fluid Color YELLOW Fluid Appearance CLEAR Fluid Viscosity SLIGHTLY VISCOUS Fluid WBC 172 Fluid RBC 273 Impressions: Abdomen/Pelvis CT 01/01/17 00:00 IMPRESSION: Diffuse fatty infiltration of the liver with an enlarged liver. Generalized ascites. Abdomen Ultrasound 01/02/17 00:00 IMPRESSION: UNREMARKABLE ULTRASOUND OF THE GALLBLADDER. Paracentesis Ultrasound 01/09/17 11:58 IMPRESSION: Successful ultrasound-guided paracentesis Assessment & Plan - Diagnosis (1) Systemic inflammatory response syndrome (SIRS) Is this a current diagnosis for this admission?: YesPlan: Likely secondary to spontaneous bacterial peritonitis. (2) Spontaneous bacterial peritonitis Is this a current diagnosis for this admission?: YesPlan: Continue IV Cipro and IV Flagyl until 01/14/2017, then convert to oral regimen if patient's encephalopathy improves. S/p paracentesis 01/09/17 with 1550ml fluid off. Culture pending. (3) Encephalopathy Is this a current diagnosis for this admission?: YesPlan: Possibly secondary to Wernicke's encephalopathy, hepatic encephalopathy, acute alcohol withdrawal. Continue thiamine. Continue lactulose. Continue NPO until mental status improves secondary to aspiration risk. Continue IV fluids. Decreased Dilaudid to 0.5 mg every 4 hours when necessary. Need to start po nutrition BRIAN, or consider alternate feeding. I will have physical therapy evaluate once patient's mental status improves. (4) Delirium tremens Is this a current diagnosis for this admission?: Yes (5) Thrombocytopenia Is this a current diagnosis for this admission?: YesPlan: Improving. Likely secondary to alcohol abuse and end-stage liver disease. (6) Hypokalemia Is this a current diagnosis for this admission?: Yes (7) Alcohol abuse Is this a current diagnosis for this admission?: Yes (8) Cirrhosis of liver Qualifiers: Hepatic cirrhosis type: alcoholic cirrhosis Is this a current diagnosis for this admission?: YesPlan: Patient has end-stage liver disease based on liver function studies, thrombocytopenia and coagulopathy. Dr. Gaines of GI consulted. I have had a long discussion with patient's and notified her of the advanced nature of patient's liver disease. We have discussed the importance of patient abstaining from alcohol after discharge. She states that he was told this last year when he was discharged from the hospital and he abstain from alcohol for 1 month and then resumed drinking again. (9) Hyponatremia Is this a current diagnosis for this admission?: Yes (10) Abnormal thyroid function test Is this a current diagnosis for this admission?: YesPlan: Repeat to 3 weeks when acute illness resolved. - Time Time Spent with patient: 35 or more minutes
[2017-01-10] MEDS: METRONIDAZOLE 500 MG/NS RTU 100 ML IV SCH ×4 (01:32→18:08)
[2017-01-10] MEDS: HYDROMORPHONE HCL INJ/PF 2 MG/ML AMPULE IV PRN ×2 (04:46→20:06)
[2017-01-10] MEDS: LACTULOSE SYRUP 20 GM/30 ML UDCUP PO SCH ×2 (06:07→11:56)
[2017-01-10] MEDS: PANTOPRAZOLE SODIUM 40 MG VIAL IV SCH ×2 (06:07→18:08)
[2017-01-10 06:10] LABS: HEMOGLOBIN 11.9 g/dL (13.5-17.0); HGB HCT DIFFERENCE 0.7; MEAN CORPUSCULAR HEMOGLOBIN 35.1 pg (27.0-33.4); MEAN CORPUSCULAR VOLUME 103 fl (80-97); RED BLOOD COUNT 3.38 10^6/uL (4.35-5.55); RED CELL DISTRIBUTION WIDTH 15.3 % (11.5-14.0); WHITE BLOOD COUNT 16.3 10^3/uL (4.0-10.5)
[2017-01-10 06:16] LABS: ALANINE AMINOTRANSFERASE 44 U/L (21-72); ALBUMIN 2.3 g/dL (3.5-5.0); ALKALINE PHOSPHATASE 251 U/L (38-126); ANION GAP 9 (5-19); ASPARTATE AMINO TRANSFERASE 89 U/L (17-59); BILIRUBIN,DIRECT 6.4 mg/dL (0.0-0.4); BILIRUBIN,TOTAL 7.7 mg/dL (0.2-1.3); BLOOD UREA NITROGEN 4 mg/dL (7-20); CALCIUM 7.8 mg/dL (8.4-10.2); CARBON DIOXIDE 21 mmol/L (22-30); CHLORIDE 111 mmol/L (98-107); CREATININE RESULT 0.34 mg/dL (0.52-1.25); GLUCOSE 118 mg/dL (75-110); MAGNESIUM 1.5 mg/dL (1.6-2.3); SODIUM 141.3 mmol/L (137-145); TOTAL PROTEIN 5.5 g/dL (6.3-8.2)
[2017-01-10 06:35] LABS: BAND NEUTROPHILS % (MANUAL) 7 % (3-5); BASOPHILS % (MANUAL) 0 % (0-2); EOSINOPHILS % (MANUAL) 3 % (0-6); LYMPHOCYTES % (MANUAL) 4 % (13-45); TOTAL CELLS COUNTED 100
[2017-01-10 06:36] LABS: ANISOCYTOSIS SLIGHT; OVALOCYTES SLIGHT; POIKILOCYTOSIS SLIGHT; TEAR DROP CELLS SLIGHT; TOXIC GRANULATION SLIGHT
[2017-01-10] MEDS ORDERED: MAGNESIUM SULFATE/D5W 1 GM/100 ML RTUPB IV ONE ×2 (06:45→09:00)
[2017-01-10] MEDS ORDERED: POTASSI CL 20 MEQ/50 ML RIDER 20 MEQ/50 ML RTUPB IV SCH (06:45)
[2017-01-10] MEDS ORDERED: POTASSIUM CHLORIDE 20 MEQ/50 ML RTU IV SCH (09:00)
[2017-01-10] MEDS: CIPROFLOXACIN 400 MG/D5W RTU 400 MG/200 ML RTUPB IV SCH (11:56)
--- NOTE | 2017-01-10 13:44 | PDOC PROGRESS REPORT ---
Subjective Progress Note for:: 01/10/17 Subjective:: The patient is still confused Physical Exam Vital Signs: Temp Pulse Resp BP Pulse Ox 98.2 F 84 18 153/74 H 99 01/10/17 12:08 01/10/17 12:08 01/10/17 12:08 01/10/17 12:08 01/10/17 12:08 Intake & Output 01/09/17 01/10/17 01/11/17 06:59 06:59 06:59 Intake Total 2794 3895 Output Total 100 Balance 2794 3795 Weight 69 kg 73.4 kg General appearance: PRESENT: no acute distress Eye exam: PRESENT: conjunctiva pink. ABSENT: scleral icterus Mouth exam: PRESENT: moist, tongue midline Neck exam: ABSENT: JVD Respiratory exam: PRESENT: clear to auscultation billy. ABSENT: rales, rhonchi, wheezes Cardiovascular exam: PRESENT: RRR. ABSENT: diastolic murmur, rubs, systolic murmur GI/Abdominal exam: PRESENT: normal bowel sounds, soft. ABSENT: distended, guarding, mass, organolmegaly, rebound, tenderness Extremities exam: ABSENT: calf tenderness, clubbing, pedal edema Neurological exam: PRESENT: altered, awake, oriented to person, oriented to place, CN II-XII grossly intact. ABSENT: oriented to time, oriented to situation, motor sensory deficit Psychiatric exam: PRESENT: flat affect Skin exam: PRESENT: dry, intact, warm. ABSENT: cyanosis, rash Results Laboratory Results: 01/10/17 05:21 01/10/17 05:21 01/09/17 01/10/17 01/10/17 14:51 05:21 05:21 WBC 16.3 H RBC 3.38 L Hgb 11.9 L Hct 35.0 L MCV 103 H MCH 35.1 H MCHC 34.0 RDW 15.3 H Plt Count 202 Seg Neutrophils % Not Reportable Lymphocytes % Not Reportable Monocytes % Not Reportable Eosinophils % Not Reportable Basophils % Not Reportable Absolute Neutrophils Not Reportable Absolute Lymphocytes Not Reportable Absolute Monocytes Not Reportable Absolute Eosinophils Not Reportable Absolute Basophils Not Reportable Sodium 141.3 Potassium 3.0 L* Chloride 111 H Carbon Dioxide 21 L Anion Gap 9 BUN 4 L Creatinine 0.34 L Est GFR ( Amer) > 60 Est GFR (Non-Af Amer) > 60 Glucose 118 H Calcium 7.8 L Magnesium 1.5 L Total Bilirubin 7.7 H AST 89 H ALT 44 Alkaline Phosphatase 251 H Total Protein 5.5 L Albumin 2.3 L Fluid Type PERITONEAL Fluid Source ASCITES Fluid Color YELLOW Fluid Appearance CLEAR Fluid Viscosity SLIGHTLY VISCOUS Fluid WBC 172 Fluid RBC 273 Impressions: Abdomen/Pelvis CT 01/01/17 00:00 IMPRESSION: Diffuse fatty infiltration of the liver with an enlarged liver. Generalized ascites. Abdomen Ultrasound 01/02/17 00:00 IMPRESSION: UNREMARKABLE ULTRASOUND OF THE GALLBLADDER. Paracentesis Ultrasound 01/09/17 11:58 IMPRESSION: Successful ultrasound-guided paracentesis Assessment & Plan - Diagnosis (1) Ascites of liver Is this a current diagnosis for this admission?: YesPlan: Patient had a paracentesis done yesterday. (2) Alcohol abuse Is this a current diagnosis for this admission?: YesPlan: We'll give Ativan as needed. The patient has evidence for delirium tremens. (3) Hyperlipidemia Is this a current diagnosis for this admission?: Yes (4) Abnormal thyroid function test Is this a current diagnosis for this admission?: YesPlan: Patient to have repeat thyroid function studies done in 3 weeks after the acute illness has resolved. (5) Cirrhosis of liver Qualifiers: Hepatic cirrhosis type: alcoholic cirrhosis Is this a current diagnosis for this admission?: YesPlan: Patient has been informed as well as his that he needs to stop drinking any alcohol. (6) Delirium tremens Is this a current diagnosis for this admission?: YesPlan: Slowly improving. Continue with Ativan when necessary. (7) Encephalopathy Is this a current diagnosis for this admission?: YesPlan: Improving. This may be multifactorial including delirium tremens, Wernicke encephalopathy and has been started on thiamine. (8) Hypokalemia Is this a current diagnosis for this admission?: YesPlan: We'll continue to replace and monitor. (9) Hyponatremia Is this a current diagnosis for this admission?: YesPlan: Resolved. (10) Systemic inflammatory response syndrome (SIRS) Is this a current diagnosis for this admission?: Yes (11) Thrombocytopenia Is this a current diagnosis for this admission?: YesPlan: Secondary to alcohol use and liver disease. - Time Time Spent with patient: 25-34 minutes - Inpatient Certification Medical Necessity: Need Close Monitoring Due to Risk of Patient Decompensation
[2017-01-10] MEDS: POTASSI CL 20 MEQ/D5NS 1L 1,000 ML IV PRN (15:42)
[2017-01-10] MEDS: THIAMINE HCL 100 MG in NORMAL SALINE 50 ML IV SCH (18:08)
[2017-01-10] MEDS ORDERED: NICOTINE 14 MG/24 HR PATCH.TD24 TD ONE (21:15)
[2017-01-10] MEDS ORDERED: POTASSIUM CHLORIDE 20 MEQ/50 ML RTU IV ONE (21:15)
[2017-01-11] MEDS: CIPROFLOXACIN 400 MG/D5W RTU 400 MG/200 ML RTUPB IV SCH ×3 (02:03→21:20)
[2017-01-11] MEDS: HYDROMORPHONE HCL INJ/PF 2 MG/ML AMPULE IV PRN ×3 (02:04→21:20)
[2017-01-11] MEDS: LORAZEPAM INJ 2 MG/1 ML VIAL IV PRN ×2 (04:17→20:24)
[2017-01-11 05:39] LABS: HEMATOCRIT 34.9 % (37.9-51.0); HEMOGLOBIN 11.8 g/dL (13.5-17.0); HGB HCT DIFFERENCE 0.5; MEAN CORPUSCULAR HEMOGLOBIN 35.1 pg (27.0-33.4); MEAN CORPUSCULAR HGB CONC 33.9 g/dL (32.0-36.0); MEAN CORPUSCULAR VOLUME 104 fl (80-97); RED BLOOD COUNT 3.37 10^6/uL (4.35-5.55); RED CELL DISTRIBUTION WIDTH 15.2 % (11.5-14.0); WHITE BLOOD COUNT 14.6 10^3/uL (4.0-10.5)
[2017-01-11 05:54] LABS: ANION GAP 10 (5-19); BLOOD UREA NITROGEN 5 mg/dL (7-20); CARBON DIOXIDE 23 mmol/L (22-30); CHLORIDE 111 mmol/L (98-107); CREATININE RESULT 0.37 mg/dL (0.52-1.25); GLUCOSE 94 mg/dL (75-110); MAGNESIUM 1.8 mg/dL (1.6-2.3); POTASSIUM 3.7 mmol/L (3.6-5.0); SODIUM 144.2 mmol/L (137-145)
[2017-01-11] MEDS: PANTOPRAZOLE SODIUM 40 MG VIAL IV SCH ×2 (06:09→18:05)
--- NOTE | 2017-01-11 10:56 | PDOC PROGRESS REPORT ---
Subjective Progress Note for:: 01/11/17 Subjective:: The patient is alert and oriented 3 today. Physical Exam Vital Signs: Temp Pulse Resp BP Pulse Ox 98.6 F 109 H 22 H 150/80 H 99 01/11/17 09:07 01/11/17 09:07 01/11/17 09:07 01/11/17 09:07 01/11/17 09:07 Intake & Output 01/10/17 01/11/17 01/12/17 06:59 06:59 06:59 Intake Total 3895 2990 Output Total 100 350 Balance 3795 2640 Weight 73.4 kg 74.4 kg General appearance: PRESENT: no acute distress Eye exam: PRESENT: conjunctiva pink, scleral icterus Mouth exam: PRESENT: moist, tongue midline Neck exam: ABSENT: JVD Respiratory exam: PRESENT: clear to auscultation billy. ABSENT: rales, rhonchi, wheezes Cardiovascular exam: PRESENT: RRR. ABSENT: diastolic murmur, rubs, systolic murmur GI/Abdominal exam: PRESENT: distended, normal bowel sounds, soft. ABSENT: guarding, mass, rebound, tenderness Extremities exam: ABSENT: calf tenderness, clubbing, pedal edema Neurological exam: PRESENT: alert, awake, oriented to person, oriented to place , oriented to time, oriented to situation, CN II-XII grossly intact. ABSENT: motor sensory deficit Psychiatric exam: PRESENT: appropriate affect Skin exam: PRESENT: dry, intact, warm. ABSENT: cyanosis, rash Results Laboratory Results: 01/11/17 05:09 01/11/17 05:09 01/11/17 01/11/17 05:09 05:09 WBC 14.6 H RBC 3.37 L Hgb 11.8 L Hct 34.9 L MCV 104 H MCH 35.1 H MCHC 33.9 RDW 15.2 H Plt Count 204 Sodium 144.2 Potassium 3.7 Chloride 111 H Carbon Dioxide 23 Anion Gap 10 BUN 5 L Creatinine 0.37 L Est GFR ( Amer) > 60 Est GFR (Non-Af Amer) > 60 Glucose 94 Calcium 8.0 L Magnesium 1.8 Impressions: Abdomen/Pelvis CT 01/01/17 00:00 IMPRESSION: Diffuse fatty infiltration of the liver with an enlarged liver. Generalized ascites. Abdomen Ultrasound 01/02/17 00:00 IMPRESSION: UNREMARKABLE ULTRASOUND OF THE GALLBLADDER. Paracentesis Ultrasound 01/09/17 11:58 IMPRESSION: Successful ultrasound-guided paracentesis Assessment & Plan - Diagnosis (1) Ascites of liver Is this a current diagnosis for this admission?: YesPlan: Patient is having reaccumulation of his ascitic fluid. We'll start the patient on Aldactone today. (2) Alcohol abuse Is this a current diagnosis for this admission?: YesPlan: We'll give Ativan as needed. The patient is alert and oriented. He wants to go home. We will wait for his family to arrive to see if they want to take him home or whether he should go to rehabilitation. I have instructed the patient that I think he would be best served by going to rehabilitation because of his weakness. (3) Hyperlipidemia Is this a current diagnosis for this admission?: YesPlan: We'll hold off on any cholesterol medications given his elevated liver enzymes at this time. (4) Abnormal thyroid function test Is this a current diagnosis for this admission?: YesPlan: Patient to have repeat thyroid function studies done in 3 weeks after the acute illness has resolved. (5) Cirrhosis of liver Qualifiers: Hepatic cirrhosis type: alcoholic cirrhosis Is this a current diagnosis for this admission?: YesPlan: Patient has been informed as well as his that he needs to stop drinking any alcohol. Patient is being started on Aldactone today. (6) Delirium tremens Is this a current diagnosis for this admission?: YesPlan: Improving. The patient is alert and oriented (7) Encephalopathy Is this a current diagnosis for this admission?: YesPlan: Improving. This may be multifactorial including delirium tremens, Wernicke encephalopathy and has been started on thiamine. (8) Hypokalemia Is this a current diagnosis for this admission?: YesPlan: We'll continue to replace and monitor. (9) Hyponatremia Is this a current diagnosis for this admission?: YesPlan: Resolved. (10) Systemic inflammatory response syndrome (SIRS) Is this a current diagnosis for this admission?: Yes (11) Thrombocytopenia Is this a current diagnosis for this admission?: YesPlan: Secondary to alcohol use and liver disease. - Time Time Spent with patient: 25-34 minutes - Inpatient Certification Medical Necessity: Need Close Monitoring Due to Risk of Patient Decompensation
[2017-01-11] MEDS: SPIRONOLACTONE 25 MG TABLET PO SCH ×2 (13:51→21:20)
[2017-01-11] MEDS: METRONIDAZOLE 500 MG/NS RTU 100 ML IV SCH ×2 (14:01→18:05)
[2017-01-11] MEDS: NICOTINE 14 MG/24 HR PATCH.TD24 TD SCH (14:01)
[2017-01-11] MEDS: POTASSI CL 20 MEQ/D5NS 1L 1,000 ML IV PRN (14:02)
[2017-01-11] MEDS: THIAMINE HCL 100 MG in NORMAL SALINE 50 ML IV SCH (18:05)
[2017-01-12] MEDS: METRONIDAZOLE 500 MG/NS RTU 100 ML IV SCH ×4 (00:51→18:11)
[2017-01-12 06:58] LABS: HEMATOCRIT 36.5 % (37.9-51.0); HEMOGLOBIN 12.3 g/dL (13.5-17.0); HGB HCT DIFFERENCE 0.4; MEAN CORPUSCULAR HEMOGLOBIN 34.8 pg (27.0-33.4); MEAN CORPUSCULAR HGB CONC 33.7 g/dL (32.0-36.0); MEAN CORPUSCULAR VOLUME 103 fl (80-97); RED BLOOD COUNT 3.54 10^6/uL (4.35-5.55); RED CELL DISTRIBUTION WIDTH 15.3 % (11.5-14.0); WHITE BLOOD COUNT 16.2 10^3/uL (4.0-10.5)
[2017-01-12 07:03] LABS: ALANINE AMINOTRANSFERASE 42 U/L (21-72); ALBUMIN 2.4 g/dL (3.5-5.0); ALKALINE PHOSPHATASE 262 U/L (38-126); ANION GAP 11 (5-19); ASPARTATE AMINO TRANSFERASE 95 U/L (17-59); BILIRUBIN,DIRECT 5.9 mg/dL (0.0-0.4); BILIRUBIN,TOTAL 7.1 mg/dL (0.2-1.3); BLOOD UREA NITROGEN 5 mg/dL (7-20); CALCIUM 8.2 mg/dL (8.4-10.2); CARBON DIOXIDE 22 mmol/L (22-30); CHLORIDE 109 mmol/L (98-107); CREATININE RESULT 0.48 mg/dL (0.52-1.25); GLUCOSE 106 mg/dL (75-110); POTASSIUM 3.8 mmol/L (3.6-5.0); SODIUM 141.5 mmol/L (137-145); TOTAL PROTEIN 5.5 g/dL (6.3-8.2)
[2017-01-12 07:20] LABS: BASOPHILS % (MANUAL) 0 % (0-2); EOSINOPHILS % (MANUAL) 0 % (0-6); LYMPHOCYTES % (MANUAL) 9 % (13-45); TOTAL CELLS COUNTED 100
[2017-01-12 07:21] LABS: ANISOCYTOSIS SLIGHT; HYPOCHROMASIA SLIGHT
[2017-01-12 07:22] LABS: PLATELET CLUMPS PRESENT
[2017-01-12] MEDS: HYDROMORPHONE HCL INJ/PF 2 MG/ML AMPULE IV PRN ×3 (08:20→23:46)
[2017-01-12] MEDS: POTASSI CL 20 MEQ/D5NS 1L 1,000 ML IV PRN (09:21)
[2017-01-12] MEDS: NICOTINE 14 MG/24 HR PATCH.TD24 TD SCH (09:24)
[2017-01-12] MEDS: SPIRONOLACTONE 25 MG TABLET PO SCH ×2 (09:25→23:48)
[2017-01-12] MEDS: CIPROFLOXACIN 400 MG/D5W RTU 400 MG/200 ML RTUPB IV SCH ×2 (09:25→23:47)
[2017-01-12] MEDS ORDERED: HYDROMORPHONE HCL INJ/PF 2 MG/ML AMPULE IV PRN (09:38)
--- NOTE | 2017-01-12 10:13 | PDOC PROGRESS REPORT ---
Subjective Progress Note for:: 01/12/17 Subjective:: The patient is alert and oriented 3 today. Complains of pain. Physical Exam Vital Signs: Temp Pulse Resp BP Pulse Ox 98.4 F 57 L 14 143/80 H 98 01/12/17 08:00 01/12/17 08:00 01/12/17 08:00 01/12/17 08:00 01/12/17 08:00 Intake & Output 01/11/17 01/12/17 01/13/17 06:59 06:59 06:59 Intake Total 2990 1056 Output Total 350 200 Balance 2640 856 Weight 74.4 kg 74.9 kg General appearance: PRESENT: no acute distress Eye exam: PRESENT: conjunctiva pink, scleral icterus Mouth exam: PRESENT: moist, tongue midline Neck exam: ABSENT: JVD Respiratory exam: PRESENT: clear to auscultation billy. ABSENT: rales, rhonchi, wheezes Cardiovascular exam: PRESENT: RRR. ABSENT: diastolic murmur, rubs, systolic murmur GI/Abdominal exam: PRESENT: distended, normal bowel sounds, soft, tenderness - Mild diffuse tenderness.. ABSENT: guarding, mass, organolmegaly, rebound Extremities exam: ABSENT: calf tenderness, clubbing, pedal edema Neurological exam: PRESENT: alert, awake, oriented to person, oriented to place , oriented to time Psychiatric exam: PRESENT: appropriate affect Results Laboratory Results: 01/12/17 06:40 01/12/17 06:40 01/12/17 01/12/17 06:40 06:40 WBC 16.2 H RBC 3.54 L Hgb 12.3 L Hct 36.5 L MCV 103 H MCH 34.8 H MCHC 33.7 RDW 15.3 H Plt Count 221 Seg Neutrophils % Not Reportable Lymphocytes % Not Reportable Monocytes % Not Reportable Eosinophils % Not Reportable Basophils % Not Reportable Absolute Neutrophils Not Reportable Absolute Lymphocytes Not Reportable Absolute Monocytes Not Reportable Absolute Eosinophils Not Reportable Absolute Basophils Not Reportable Sodium 141.5 Potassium 3.8 Chloride 109 H Carbon Dioxide 22 Anion Gap 11 BUN 5 L Creatinine 0.48 L Est GFR ( Amer) > 60 Est GFR (Non-Af Amer) > 60 Glucose 106 Calcium 8.2 L Total Bilirubin 7.1 H AST 95 H ALT 42 Alkaline Phosphatase 262 H Total Protein 5.5 L Albumin 2.4 L Impressions: Abdomen/Pelvis CT 01/01/17 00:00 IMPRESSION: Diffuse fatty infiltration of the liver with an enlarged liver. Generalized ascites. Abdomen Ultrasound 01/02/17 00:00 IMPRESSION: UNREMARKABLE ULTRASOUND OF THE GALLBLADDER. Paracentesis Ultrasound 01/09/17 11:58 IMPRESSION: Successful ultrasound-guided paracentesis Assessment & Plan - Diagnosis (1) Ascites of liver Is this a current diagnosis for this admission?: YesPlan: Patient was started on Aldactone yesterday. (2) Alcohol abuse Is this a current diagnosis for this admission?: YesPlan: We'll give Ativan as needed. The patient is alert and oriented. The patient will be going to rehabilitation when a bed becomes available. (3) Hyperlipidemia Is this a current diagnosis for this admission?: YesPlan: We'll hold off on any cholesterol medications given his elevated liver enzymes at this time. (4) Abnormal thyroid function test Is this a current diagnosis for this admission?: YesPlan: Patient to have repeat thyroid function studies done in 3 weeks after the acute illness has resolved. (5) Cirrhosis of liver Qualifiers: Hepatic cirrhosis type: alcoholic cirrhosis Is this a current diagnosis for this admission?: YesPlan: Patient has been informed as well as his that he needs to stop drinking any alcohol. Patient is on Aldactone. Will need to start beta blockers also. (6) Delirium tremens Is this a current diagnosis for this admission?: YesPlan: Improving. The patient is alert and oriented (7) Encephalopathy Is this a current diagnosis for this admission?: YesPlan: Improving. This may be multifactorial including delirium tremens, Wernicke encephalopathy and has been started on thiamine. (8) Hypokalemia Is this a current diagnosis for this admission?: YesPlan: We'll continue to replace and monitor. (9) Hyponatremia Is this a current diagnosis for this admission?: YesPlan: Resolved. (10) Systemic inflammatory response syndrome (SIRS) Is this a current diagnosis for this admission?: YesPlan: Secondary to spontaneous bacterial peritonitis. Being treated with Cipro and Flagyl. We'll continue with IV antibiotics until January 14 and then switch to oral. (11) Thrombocytopenia Is this a current diagnosis for this admission?: YesPlan: Secondary to alcohol use and liver disease. - Time Time Spent with patient: 25-34 minutes - Inpatient Certification Medical Necessity: Need for IV Antibiotics
[2017-01-12] MEDS ORDERED: HYDROMORPHONE HCL INJ/PF 2 MG/ML AMPULE IV ONE (10:15)
[2017-01-12] MEDS ORDERED: PROPRANOLOL HCL 10 MG TABLET PO ONE (11:00)
[2017-01-12] MEDS: THIAMINE HCL 100 MG in NORMAL SALINE 50 ML IV SCH (17:36)
[2017-01-13] MEDS: POTASSI CL 20 MEQ/D5NS 1L 1,000 ML IV PRN ×2 (02:40→20:55)
[2017-01-13] MEDS: METRONIDAZOLE 500 MG/NS RTU 100 ML IV SCH ×4 (02:43→20:55)
[2017-01-13] MEDS: LORAZEPAM INJ 2 MG/1 ML VIAL IV PRN ×2 (03:49→20:55)
[2017-01-13] MEDS ORDERED: LORAZEPAM INJ 2 MG/1 ML VIAL IV ONE (04:45)
[2017-01-13 05:24] LABS: HEMATOCRIT 34.2 % (37.9-51.0); HEMOGLOBIN 11.6 g/dL (13.5-17.0); HGB HCT DIFFERENCE 0.6; MEAN CORPUSCULAR VOLUME 103 fl (80-97); RED BLOOD COUNT 3.32 10^6/uL (4.35-5.55); RED CELL DISTRIBUTION WIDTH 15.2 % (11.5-14.0); WHITE BLOOD COUNT 19.5 10^3/uL (4.0-10.5)
[2017-01-13 06:25] LABS: BAND NEUTROPHILS % (MANUAL) 2 % (3-5); BASOPHILS % (MANUAL) 0 % (0-2); EOSINOPHILS % (MANUAL) 1 % (0-6); LYMPHOCYTES % (MANUAL) 7 % (13-45); TOTAL CELLS COUNTED 100
[2017-01-13 06:27] LABS: ANISOCYTOSIS SLIGHT; TOXIC GRANULATION SLIGHT; TOXIC VACUOLATION PRESENT
[2017-01-13 06:28] LABS: HYPOCHROMASIA 1+
[2017-01-13 06:44] LABS: ALANINE AMINOTRANSFERASE 43 U/L (21-72); ALBUMIN 2.3 g/dL (3.5-5.0); ALKALINE PHOSPHATASE 248 U/L (38-126); ANION GAP 7 (5-19); ASPARTATE AMINO TRANSFERASE 107 U/L (17-59); BILIRUBIN,DIRECT 4.8 mg/dL (0.0-0.4); BLOOD UREA NITROGEN 3 mg/dL (7-20); CALCIUM 7.9 mg/dL (8.4-10.2); CARBON DIOXIDE 26 mmol/L (22-30); CHLORIDE 106 mmol/L (98-107); CREATININE RESULT 0.45 mg/dL (0.52-1.25); GLUCOSE 101 mg/dL (75-110); POTASSIUM 3.3 mmol/L (3.6-5.0); SODIUM 139.2 mmol/L (137-145); TOTAL PROTEIN 5.2 g/dL (6.3-8.2)
[2017-01-13] MEDS: PROPRANOLOL HCL 10 MG TABLET PO SCH (10:50)
[2017-01-13] MEDS: SPIRONOLACTONE 25 MG TABLET PO SCH (10:50)
[2017-01-13] MEDS: HYDROMORPHONE HCL INJ/PF 2 MG/ML AMPULE IV PRN ×3 (10:50→20:11)
[2017-01-13] MEDS: CIPROFLOXACIN 400 MG/D5W RTU 400 MG/200 ML RTUPB IV SCH (10:51)
[2017-01-13] MEDS: NICOTINE 14 MG/24 HR PATCH.TD24 TD SCH (10:51)
--- NOTE | 2017-01-13 13:12 | PDOC PROGRESS REPORT ---
Subjective Progress Note for:: 01/13/17 Subjective:: The patient is alert and oriented 3 today. Complains of distended abdomen. Physical Exam Vital Signs: Temp Pulse Resp BP Pulse Ox 98.4 F 103 H 18 134/69 H 96 01/13/17 08:00 01/13/17 08:00 01/13/17 08:00 01/13/17 08:00 01/13/17 08:00 Intake & Output 01/12/17 01/13/17 01/14/17 06:59 06:59 06:59 Intake Total 1056 2540 200 Output Total 200 1625 0 Balance 856 915 200 Weight 74.9 kg 77.4 kg General appearance: PRESENT: no acute distress Eye exam: PRESENT: conjunctiva pink, scleral icterus Mouth exam: PRESENT: moist, tongue midline Neck exam: ABSENT: JVD Respiratory exam: PRESENT: clear to auscultation billy. ABSENT: rales, rhonchi, wheezes Cardiovascular exam: PRESENT: RRR. ABSENT: diastolic murmur, rubs, systolic murmur GI/Abdominal exam: PRESENT: distended, normal bowel sounds, soft, tenderness - Minimal tenderness. ABSENT: guarding, mass, organolmegaly, rebound Extremities exam: ABSENT: calf tenderness, clubbing, pedal edema Neurological exam: PRESENT: alert, awake, oriented to person, oriented to place , oriented to time, oriented to situation, CN II-XII grossly intact. ABSENT: motor sensory deficit Psychiatric exam: PRESENT: appropriate affect Results Laboratory Results: 01/13/17 04:51 01/13/17 06:05 01/13/17 01/13/17 01/13/17 04:51 04:51 06:05 WBC 19.5 H RBC 3.32 L Hgb 11.6 L Hct 34.2 L MCV 103 H MCH 35.0 H MCHC 34.0 RDW 15.2 H Plt Count 237 Seg Neutrophils % Not Reportable Lymphocytes % Not Reportable Monocytes % Not Reportable Eosinophils % Not Reportable Basophils % Not Reportable Absolute Neutrophils Not Reportable Absolute Lymphocytes Not Reportable Absolute Monocytes Not Reportable Absolute Eosinophils Not Reportable Absolute Basophils Not Reportable Sodium Cancelled 139.2 Potassium Cancelled 3.3 L Chloride Cancelled 106 Carbon Dioxide Cancelled 26 Anion Gap Cancelled 7 BUN Cancelled 3 L Creatinine Cancelled 0.45 L Est GFR ( Amer) Cancelled > 60 Est GFR (Non-Af Amer) Cancelled > 60 Glucose Cancelled 101 Calcium Cancelled 7.9 L Total Bilirubin Cancelled 6.0 H AST Cancelled 107 H ALT Cancelled 43 Alkaline Phosphatase Cancelled 248 H Total Protein Cancelled 5.2 L Albumin Cancelled 2.3 L 01/09/17 14:51 Peritoneal Gram Stain - Final 01/09/17 14:51 Peritoneal Body Fluid Culture - Final NO AEROBIC OR ANAEROBIC ORGANISMS RECOVERED Impressions: Abdomen/Pelvis CT 01/01/17 00:00 IMPRESSION: Diffuse fatty infiltration of the liver with an enlarged liver. Generalized ascites. Abdomen Ultrasound 01/02/17 00:00 IMPRESSION: UNREMARKABLE ULTRASOUND OF THE GALLBLADDER. Paracentesis Ultrasound 01/09/17 11:58 IMPRESSION: Successful ultrasound-guided paracentesis Assessment & Plan - Diagnosis (1) Ascites of liver Is this a current diagnosis for this admission?: YesPlan: Patient was started on Aldactone. We'll check an ultrasound today to see how much fluid has reaccumulated. (2) Alcohol abuse Is this a current diagnosis for this admission?: YesPlan: We'll give Ativan as needed. The patient is alert and oriented. The patient will be going to rehabilitation when a bed becomes available. (3) Hyperlipidemia Is this a current diagnosis for this admission?: YesPlan: We'll hold off on any cholesterol medications given his elevated liver enzymes at this time. (4) Abnormal thyroid function test Is this a current diagnosis for this admission?: YesPlan: Patient to have repeat thyroid function studies done in 3 weeks after the acute illness has resolved. (5) Cirrhosis of liver Qualifiers: Hepatic cirrhosis type: alcoholic cirrhosis Is this a current diagnosis for this admission?: YesPlan: Patient has been informed as well as his that he needs to stop drinking any alcohol. Patient is on Aldactone. Will need to start beta blockers also. (6) Delirium tremens Is this a current diagnosis for this admission?: YesPlan: Improving. The patient is alert and oriented (7) Encephalopathy Is this a current diagnosis for this admission?: YesPlan: Improving. This may be multifactorial including delirium tremens, Wernicke encephalopathy and has been started on thiamine. (8) Hypokalemia Is this a current diagnosis for this admission?: YesPlan: We'll continue to replace and monitor. (9) Hyponatremia Is this a current diagnosis for this admission?: YesPlan: Resolved. (10) Systemic inflammatory response syndrome (SIRS) Is this a current diagnosis for this admission?: YesPlan: Secondary to spontaneous bacterial peritonitis. Being treated with Cipro and Flagyl. We'll continue with IV antibiotics until January 14 and then switch to oral. (11) Thrombocytopenia Is this a current diagnosis for this admission?: YesPlan: Secondary to alcohol use and liver disease. - Time Time Spent with patient: 25-34 minutes - Inpatient Certification Medical Necessity: Need Close Monitoring Due to Risk of Patient Decompensation
[2017-01-13] MEDS: THIAMINE HCL 100 MG in NORMAL SALINE 50 ML IV SCH (20:11)
[2017-01-14] MEDS: SPIRONOLACTONE 25 MG TABLET PO SCH ×2 (00:16→10:59)
[2017-01-14] MEDS: CIPROFLOXACIN 400 MG/D5W RTU 400 MG/200 ML RTUPB IV SCH (00:16)
[2017-01-14] MEDS: METRONIDAZOLE 500 MG/NS RTU 100 ML IV SCH ×2 (00:17→05:23)
[2017-01-14] MEDS: HYDROMORPHONE HCL INJ/PF 2 MG/ML AMPULE IV PRN ×3 (05:23→16:09)
[2017-01-14] MEDS: LORAZEPAM INJ 2 MG/1 ML VIAL IV PRN (05:24)
[2017-01-14 06:42] LABS: ALANINE AMINOTRANSFERASE 39 U/L (21-72); ALBUMIN 2.1 g/dL (3.5-5.0); ALKALINE PHOSPHATASE 232 U/L (38-126); ANION GAP 10 (5-19); ASPARTATE AMINO TRANSFERASE 101 U/L (17-59); BILIRUBIN,DIRECT 4.1 mg/dL (0.0-0.4); BILIRUBIN,TOTAL 5.1 mg/dL (0.2-1.3); BLOOD UREA NITROGEN 3 mg/dL (7-20); CALCIUM 7.9 mg/dL (8.4-10.2); CARBON DIOXIDE 22 mmol/L (22-30); CHLORIDE 107 mmol/L (98-107); CREATININE RESULT 0.39 mg/dL (0.52-1.25); GLUCOSE 95 mg/dL (75-110); POTASSIUM 3.3 mmol/L (3.6-5.0); SODIUM 139.3 mmol/L (137-145); TOTAL PROTEIN 5.1 g/dL (6.3-8.2)
[2017-01-14 06:43] LABS: HEMATOCRIT 34.7 % (37.9-51.0); HEMOGLOBIN 11.8 g/dL (13.5-17.0); HGB HCT DIFFERENCE 0.7; MEAN CORPUSCULAR HEMOGLOBIN 35.1 pg (27.0-33.4); MEAN CORPUSCULAR VOLUME 103 fl (80-97); RED BLOOD COUNT 3.36 10^6/uL (4.35-5.55); RED CELL DISTRIBUTION WIDTH 14.9 % (11.5-14.0); WHITE BLOOD COUNT 17.5 10^3/uL (4.0-10.5)
[2017-01-14 07:28] LABS: ANISOCYTOSIS SLIGHT; BASOPHILS % (MANUAL) 0 % (0-2); EOSINOPHILS % (MANUAL) 1 % (0-6); HYPOCHROMASIA 1+; LYMPHOCYTES % (MANUAL) 15 % (13-45); POLYCHROMASIA SLIGHT; TOTAL CELLS COUNTED 100; TOXIC GRANULATION 1+; TOXIC VACUOLATION PRESENT
[2017-01-14] MEDS ORDERED: POTASSI CL 20 MEQ/D5NS 1L 1,000 ML IV PRN (10:32)
--- NOTE | 2017-01-14 10:57 | PDOC PROGRESS REPORT ---
Subjective Progress Note for:: 01/14/17 Subjective:: Patient complains of continued abdominal pain. Patient denies fever, chills, headache, new focal weakness, chest pain, shortness of breath, nausea, vomiting , diarrhea, constipation. Physical Exam Vital Signs: Temp Pulse Resp BP Pulse Ox 98.5 F 72 18 140/82 H 98 01/14/17 08:00 01/14/17 08:00 01/14/17 08:00 01/14/17 08:00 01/14/17 08:00 Intake & Output 01/13/17 01/14/17 01/15/17 06:59 06:59 06:59 Intake Total 2540 1990 Output Total 1625 600 Balance 915 1390 Weight 77.4 kg 77.4 kg GENERAL: No acute distress HEENT: Conjunctiva clear, nonicteric, moist mucous membranes, no JVD, midline trachea RESPIRATORY: Clear to auscultation bilaterally, no wheezes, no rhonchi CARDIAC: Regular rate and rhythm, no murmurs/gallops/rubs ABDOMEN: Soft, distended, nonspecific tenderness, positive bowel sounds, no rebound, no guarding EXTREMETIES: No edema, cyanosis, clubbing NEUROLOGIC: Alert, oriented to person/place/time, CN's grossly intact, no focal deficits SKIN: No rash, wounds PSYCH: Normal mood, normal affect Results Laboratory Results: 01/14/17 06:13 01/14/17 06:13 01/14/17 01/14/17 06:13 06:13 WBC 17.5 H RBC 3.36 L Hgb 11.8 L Hct 34.7 L MCV 103 H MCH 35.1 H MCHC 34.0 RDW 14.9 H Plt Count 254 Seg Neutrophils % Not Reportable Lymphocytes % Not Reportable Monocytes % Not Reportable Eosinophils % Not Reportable Basophils % Not Reportable Absolute Neutrophils Not Reportable Absolute Lymphocytes Not Reportable Absolute Monocytes Not Reportable Absolute Eosinophils Not Reportable Absolute Basophils Not Reportable Sodium 139.3 Potassium 3.3 L Chloride 107 Carbon Dioxide 22 Anion Gap 10 BUN 3 L Creatinine 0.39 L Est GFR ( Amer) > 60 Est GFR (Non-Af Amer) > 60 Glucose 95 Calcium 7.9 L Total Bilirubin 5.1 H AST 101 H ALT 39 Alkaline Phosphatase 232 H Total Protein 5.1 L Albumin 2.1 L 01/09/17 14:51 Peritoneal Gram Stain - Final 01/09/17 14:51 Peritoneal Body Fluid Culture - Final NO AEROBIC OR ANAEROBIC ORGANISMS RECOVERED Impressions: Abdomen/Pelvis CT 01/01/17 00:00 IMPRESSION: Diffuse fatty infiltration of the liver with an enlarged liver. Generalized ascites. Paracentesis Ultrasound 01/09/17 11:58 IMPRESSION: Successful ultrasound-guided paracentesis Abdomen Ultrasound 01/14/17 00:00 IMPRESSION: Small to moderate amount of ascites in all 4 quadrants Assessment & Plan - Diagnosis (1) Systemic inflammatory response syndrome (SIRS) Is this a current diagnosis for this admission?: YesPlan: Periteol cultures negative. Patient remains afebrile, has persistent leukocytosis. He has persistent abdominal pain. Discontinue IV Cipro and Flagyl. Start IV ertapenem. Repeat CT scan of abdomen/pelvis. (2) Spontaneous bacterial peritonitis Is this a current diagnosis for this admission?: Yes (3) Encephalopathy Is this a current diagnosis for this admission?: YesPlan: Clinically much improved. Patient is now alert and oriented 3. Possibly secondary to Wernicke's encephalopathy, hepatic encephalopathy. Continue thiamine. Continue lactulose. (4) Delirium tremens Is this a current diagnosis for this admission?: Yes (5) Thrombocytopenia Is this a current diagnosis for this admission?: Yes (6) Hypokalemia Is this a current diagnosis for this admission?: Yes (7) Alcohol abuse Is this a current diagnosis for this admission?: Yes (8) Cirrhosis of liver Qualifiers: Hepatic cirrhosis type: alcoholic cirrhosis Is this a current diagnosis for this admission?: YesPlan: Continue spironolactone, lactulose, propranolol. Alcohol cessation is discussed with patient again today. (9) Hyponatremia Is this a current diagnosis for this admission?: Yes (10) Abnormal thyroid function test Is this a current diagnosis for this admission?: Yes (11) Ambulatory dysfunction Is this a current diagnosis for this admission?: YesPlan: Continue physical therapy. Patient will need to go to rehabilitation. - Time Time Spent with patient: 35 or more minutes Anticipated discharge: Acute Rehab
[2017-01-14] MEDS: PROPRANOLOL HCL 10 MG TABLET PO SCH (10:59)
[2017-01-14] MEDS ORDERED: METRONIDAZOLE 500 MG TABLET PO SCH (14:00)
[2017-01-14] MEDS: ERTAPENEM SODIUM 1 GM in NORMAL SALINE 50 ML IV SCH (16:09)
[2017-01-14] MEDS ORDERED: CIPROFLOXACIN HCL 500 MG TABLET PO SCH (22:00)
[2017-01-15] MEDS: SPIRONOLACTONE 25 MG TABLET PO SCH ×3 (00:23→21:06)
[2017-01-15] MEDS: HYDROMORPHONE HCL INJ/PF 2 MG/ML AMPULE IV PRN ×6 (00:23→23:53)
[2017-01-15] MEDS: LORAZEPAM INJ 2 MG/1 ML VIAL IV PRN (00:23)
[2017-01-15 06:09] LABS: HEMATOCRIT 35.4 % (37.9-51.0); HEMOGLOBIN 11.8 g/dL (13.5-17.0); MEAN CORPUSCULAR HEMOGLOBIN 34.3 pg (27.0-33.4); MEAN CORPUSCULAR HGB CONC 33.3 g/dL (32.0-36.0); MEAN CORPUSCULAR VOLUME 103 fl (80-97); RED BLOOD COUNT 3.44 10^6/uL (4.35-5.55); RED CELL DISTRIBUTION WIDTH 14.8 % (11.5-14.0); WHITE BLOOD COUNT 18.7 10^3/uL (4.0-10.5)
[2017-01-15 06:15] LABS: ALANINE AMINOTRANSFERASE 43 U/L (21-72); ALBUMIN 2.2 g/dL (3.5-5.0); ALKALINE PHOSPHATASE 249 U/L (38-126); ANION GAP 9 (5-19); ASPARTATE AMINO TRANSFERASE 108 U/L (17-59); BILIRUBIN,DIRECT 4.1 mg/dL (0.0-0.4); BILIRUBIN,TOTAL 5.1 mg/dL (0.2-1.3); BLOOD UREA NITROGEN 4 mg/dL (7-20); CALCIUM 8.1 mg/dL (8.4-10.2); CARBON DIOXIDE 24 mmol/L (22-30); CHLORIDE 107 mmol/L (98-107); CREATININE RESULT 0.41 mg/dL (0.52-1.25); GLUCOSE 87 mg/dL (75-110); MAGNESIUM 1.7 mg/dL (1.6-2.3); POTASSIUM 3.6 mmol/L (3.6-5.0); SODIUM 139.7 mmol/L (137-145); TOTAL PROTEIN 5.4 g/dL (6.3-8.2)
[2017-01-15 06:33] LABS: BAND NEUTROPHILS % (MANUAL) 2 % (3-5); BASOPHILS % (MANUAL) 0 % (0-2); EOSINOPHILS % (MANUAL) 2 % (0-6); LYMPHOCYTES % (MANUAL) 9 % (13-45); TOTAL CELLS COUNTED 100
[2017-01-15 06:35] LABS: ANISOCYTOSIS SLIGHT; OVALOCYTES SLIGHT; POIKILOCYTOSIS SLIGHT; SCHISTOCYTES SLIGHT; TEAR DROP CELLS SLIGHT; TOXIC GRANULATION SLIGHT; TOXIC VACUOLATION PRESENT
[2017-01-15] MEDS ORDERED: VANCOMYCIN HCL 0 MG in DEXTROSE 5%-WATER 250 ML IV NR (08:00)
[2017-01-15] MEDS: THIAMINE HCL 100 MG TABLET PO SCH (09:41)
[2017-01-15] MEDS: PROPRANOLOL HCL 10 MG TABLET PO SCH (09:41)
[2017-01-15] MEDS: ERTAPENEM SODIUM 1 GM in NORMAL SALINE 50 ML IV SCH (12:08)
[2017-01-15] MEDS: FUROSEMIDE 20 MG TABLET PO SCH (12:08)
--- NOTE | 2017-01-15 14:17 | PDOC PROGRESS REPORT ---
Subjective Progress Note for:: 01/15/17 Subjective:: Patient complains of continued abdominal pain. Patient denies fever, chills, headache, new focal weakness, chest pain, shortness of breath, nausea, vomiting , diarrhea, constipation. Physical Exam Vital Signs: Temp Pulse Resp BP Pulse Ox 97.5 F 85 17 112/76 100 01/15/17 11:25 01/15/17 11:25 01/15/17 11:25 01/15/17 11:25 01/15/17 11:25 Intake & Output 01/14/17 01/15/17 01/16/17 06:59 06:59 06:59 Intake Total 1990 300 Output Total 600 3 Balance 1390 297 Weight 77.4 kg 79.1 kg GENERAL: No acute distress HEENT: Conjunctiva clear, nonicteric, moist mucous membranes, no JVD, midline trachea RESPIRATORY: Clear to auscultation bilaterally, no wheezes, no rhonchi CARDIAC: Regular rate and rhythm, no murmurs/gallops/rubs ABDOMEN: Soft, distended, nonspecific tenderness, positive bowel sounds, no rebound, no guarding EXTREMETIES: Pitting edema in both lower extremities NEUROLOGIC: Alert, oriented to person/place/time, CN's grossly intact, no focal deficits SKIN: No rash, wounds PSYCH: Normal mood, normal affect Results Laboratory Results: 01/15/17 05:40 01/15/17 05:40 01/15/17 01/15/17 05:40 05:40 WBC 18.7 H RBC 3.44 L Hgb 11.8 L Hct 35.4 L MCV 103 H MCH 34.3 H MCHC 33.3 RDW 14.8 H Plt Count 304 Seg Neutrophils % Not Reportable Lymphocytes % Not Reportable Monocytes % Not Reportable Eosinophils % Not Reportable Basophils % Not Reportable Absolute Neutrophils Not Reportable Absolute Lymphocytes Not Reportable Absolute Monocytes Not Reportable Absolute Eosinophils Not Reportable Absolute Basophils Not Reportable Sodium 139.7 Potassium 3.6 Chloride 107 Carbon Dioxide 24 Anion Gap 9 BUN 4 L Creatinine 0.41 L Est GFR ( Amer) > 60 Est GFR (Non-Af Amer) > 60 Glucose 87 Calcium 8.1 L Magnesium 1.7 Total Bilirubin 5.1 H AST 108 H ALT 43 Alkaline Phosphatase 249 H Total Protein 5.4 L Albumin 2.2 L Impressions: Paracentesis Ultrasound 01/09/17 11:58 IMPRESSION: Successful ultrasound-guided paracentesis Abdomen Ultrasound 01/14/17 00:00 IMPRESSION: Small to moderate amount of ascites in all 4 quadrants Abdomen/Pelvis CT 01/14/17 00:00 IMPRESSION: 1. Moderate diffuse ascites. 2. Fatty infiltration of the liver. 3. Bilateral pleural effusions and basilar atelectasis new from prior study. Chest X-Ray 01/15/17 07:59 IMPRESSION: NO ACUTE RADIOGRAPHIC FINDING IN THE CHEST. Assessment & Plan - Diagnosis (1) Systemic inflammatory response syndrome (SIRS) Is this a current diagnosis for this admission?: YesPlan: Periteol cultures negative. Patient remains afebrile, has persistent leukocytosis. He has persistent abdominal pain. Discontinue IV Cipro and Flagyl. Continue IV ertapenem day #2. Add IV vancomycin secondary to persistent leukocytosis. Repeat CT scan of abdomen/pelvis performed on 2016 shows large amount of ascites, no acute inflammatory process. Repeat blood cultures, urine, chest x-ray. Repeat peritoneal fluid culture. Call ID when all cultures back. (2) Spontaneous bacterial peritonitis Is this a current diagnosis for this admission?: YesPlan: IV ertapenem, IV vancomycin. Repeat paracentesis for diagnostic and therapeutic purposes today. (3) Encephalopathy Is this a current diagnosis for this admission?: YesPlan: Clinically much improved. Patient is now alert and oriented 3. Possibly secondary to Wernicke's encephalopathy, hepatic encephalopathy. Continue thiamine. Continue lactulose. (4) Delirium tremens Is this a current diagnosis for this admission?: YesPlan: Continue when necessary Ativan. (5) Thrombocytopenia Is this a current diagnosis for this admission?: Yes (6) Hypokalemia Is this a current diagnosis for this admission?: Yes (7) Alcohol abuse Is this a current diagnosis for this admission?: Yes (8) Cirrhosis of liver Qualifiers: Hepatic cirrhosis type: alcoholic cirrhosis Is this a current diagnosis for this admission?: YesPlan: Continue spironolactone, lactulose, propranolol. Add Lasix secondary to ascites /edema. Alcohol cessation is discussed with patient again today. Palliative care consult. (9) Hyponatremia Is this a current diagnosis for this admission?: Yes (10) Abnormal thyroid function test Is this a current diagnosis for this admission?: Yes (11) Ambulatory dysfunction Is this a current diagnosis for this admission?: YesPlan: Continue physical therapy. Patient will need to go to rehabilitation. - Time Time Spent with patient: 35 or more minutes
[2017-01-15 15:36] LABS: FLUID TYPE PERITONEAL
[2017-01-15 15:37] LABS: FLUID APPEARANCE CLEAR; FLUID RBC AVERAGE 113.5; FLUID RBC DILUENT USED NONE USED; FLUID RBC DILUTION FACTOR 1; FLUID RBC SIDE 1 117; FLUID RBC SIDE 2 110; TOTAL RBC SQUARES COUNTED FLD 225
[2017-01-15] MEDS: VANCOMYCIN HCL 1,500 MG in DEXTROSE 5%-WATER 250 ML IV SCH ×2 (15:53→21:04)
[2017-01-16] MEDS: HYDROMORPHONE HCL INJ/PF 2 MG/ML AMPULE IV PRN ×5 (04:25→22:40)
[2017-01-16] MEDS: VANCOMYCIN HCL 1,500 MG in DEXTROSE 5%-WATER 250 ML IV SCH (05:09)
[2017-01-16 06:08] LABS: ABSOLUTE BASOPHILS # (AUTO) 0.1 10^3/uL (0.0-0.2); ABSOLUTE EOSINOPHILS # (AUTO) 0.5 10^3/uL (0.0-0.6); ABSOLUTE LYMPHOCYTES (AUTO) 2.5 10^3/uL (0.5-4.7); ABSOLUTE MONOCYTES (AUTO) 1.5 10^3/uL (0.1-1.4); ABSOLUTE NEUT (AUTO) 12.5 10^3/uL (1.7-8.2); BASOPHILS % (AUTO) 0.4 % (0-2); EOSINOPHILS % (AUTO) 2.8 % (0-6); HEMATOCRIT 37.7 % (37.9-51.0); HEMOGLOBIN 12.8 g/dL (13.5-17.0); HGB HCT DIFFERENCE 0.7; LYMPHOCYTES % (AUTO) 14.7 % (13-45); MEAN CORPUSCULAR HEMOGLOBIN 35.1 pg (27.0-33.4); MEAN CORPUSCULAR VOLUME 103 fl (80-97); MONOCYTES % (AUTO) 8.8 % (3-13); RED BLOOD COUNT 3.65 10^6/uL (4.35-5.55); RED CELL DISTRIBUTION WIDTH 14.8 % (11.5-14.0); SEGMENTED NEUTROPHILS % (AUTO) 73.3 % (42-78); WHITE BLOOD COUNT 17.1 10^3/uL (4.0-10.5)
[2017-01-16 06:33] LABS: ALANINE AMINOTRANSFERASE 44 U/L (21-72); ALBUMIN 2.4 g/dL (3.5-5.0); ALKALINE PHOSPHATASE 248 U/L (38-126); ANION GAP 11 (5-19); ASPARTATE AMINO TRANSFERASE 117 U/L (17-59); BILIRUBIN,DIRECT 3.4 mg/dL (0.0-0.4); BILIRUBIN,TOTAL 4.5 mg/dL (0.2-1.3); BLOOD UREA NITROGEN 3 mg/dL (7-20); CALCIUM 8.1 mg/dL (8.4-10.2); CARBON DIOXIDE 27 mmol/L (22-30); CHLORIDE 103 mmol/L (98-107); CREATININE RESULT 0.44 mg/dL (0.52-1.25); GLUCOSE 121 mg/dL (75-110); MAGNESIUM 1.6 mg/dL (1.6-2.3); POTASSIUM 3.2 mmol/L (3.6-5.0); SODIUM 140.8 mmol/L (137-145); TOTAL PROTEIN 5.4 g/dL (6.3-8.2)
[2017-01-16] MEDS: THIAMINE HCL 100 MG TABLET PO SCH (10:43)
[2017-01-16] MEDS: PROPRANOLOL HCL 10 MG TABLET PO SCH (10:43)
[2017-01-16] MEDS: SPIRONOLACTONE 25 MG TABLET PO SCH ×2 (10:43→21:31)
[2017-01-16] MEDS ORDERED: POTASSIUM CHLORIDE 10 MEQ TABLET.SA PO ONE (11:00)
[2017-01-16] MEDS ORDERED: SPIRONOLACTONE 25 MG TABLET PO ONE (11:00)
--- NOTE | 2017-01-16 11:19 | PDOC PROGRESS REPORT ---
Subjective Progress Note for:: 01/16/17 Subjective:: Patient states he has decreased appetite and is concerned about swelling in his legs. He has been having pretty much constant pain throughout his body and abdomen. He complains about the frequency of his Dilaudid. Patient denies fever , chills, headache, new focal weakness, chest pain, shortness of breath, nausea , vomiting, diarrhea, constipation. Physical Exam Vital Signs: Temp Pulse Resp BP Pulse Ox 98.6 F 71 16 138/73 H 100 01/16/17 07:50 01/16/17 07:50 01/16/17 07:50 01/16/17 07:50 01/16/17 08:24 Intake & Output 01/15/17 01/16/17 01/17/17 06:59 06:59 06:59 Intake Total 300 1845 Output Total 3 Balance 297 1845 Weight 79.1 kg 80.6 kg GENERAL: No acute distress HEENT: Conjunctiva clear, nonicteric, moist mucous membranes, no JVD, midline trachea RESPIRATORY: Clear to auscultation bilaterally, no wheezes, no rhonchi CARDIAC: Regular rate and rhythm, no murmurs/gallops/rubs ABDOMEN: Soft, distended, no tenderness, positive bowel sounds, no rebound, no guarding EXTREMETIES: Pitting edema in both lower extremities NEUROLOGIC: Alert, oriented to person/place/time, CN's grossly intact, no focal deficits SKIN: No rash, wounds PSYCH: Normal mood, normal affect Results Laboratory Results: 01/16/17 05:45 01/16/17 05:45 01/15/17 01/16/17 01/16/17 14:49 05:45 05:45 WBC 17.1 H RBC 3.65 L Hgb 12.8 L Hct 37.7 L MCV 103 H MCH 35.1 H MCHC 34.0 RDW 14.8 H Plt Count 268 Seg Neutrophils % 73.3 Lymphocytes % 14.7 Monocytes % 8.8 Eosinophils % 2.8 Basophils % 0.4 Absolute Neutrophils 12.5 H Absolute Lymphocytes 2.5 Absolute Monocytes 1.5 H Absolute Eosinophils 0.5 Absolute Basophils 0.1 Sodium 140.8 Potassium 3.2 L Chloride 103 Carbon Dioxide 27 Anion Gap 11 BUN 3 L Creatinine 0.44 L Est GFR ( Amer) > 60 Est GFR (Non-Af Amer) > 60 Glucose 121 H Calcium 8.1 L Magnesium 1.6 Total Bilirubin 4.5 H AST 117 H ALT 44 Alkaline Phosphatase 248 H Total Protein 5.4 L Albumin 2.4 L Fluid Type PERITONEAL Fluid Source ASCITES Fluid Color YELLOW Fluid Appearance CLEAR Fluid Viscosity LIQUID Fluid WBC 83 Fluid RBC 126 Impressions: Abdomen Ultrasound 01/14/17 00:00 IMPRESSION: Small to moderate amount of ascites in all 4 quadrants Abdomen/Pelvis CT 01/14/17 00:00 IMPRESSION: 1. Moderate diffuse ascites. 2. Fatty infiltration of the liver. 3. Bilateral pleural effusions and basilar atelectasis new from prior study. Chest X-Ray 01/15/17 07:59 IMPRESSION: NO ACUTE RADIOGRAPHIC FINDING IN THE CHEST. Paracentesis Ultrasound 01/15/17 11:24 IMPRESSION: Successful ultrasound-guided diagnostic and therapeutic paracentesis Assessment & Plan - Diagnosis (1) Systemic inflammatory response syndrome (SIRS) Is this a current diagnosis for this admission?: YesPlan: Case discussed with Dr. Michelle of infectious disease at [facility]. She recommended discontinuation of antibiotics as patient has received 16 days of antibiotics for peritonitis. She is advised to check stool for C. difficile. She advised to monitor patient in the hospital for the next few days for recurrence of fevers or worsening symptoms. Reculture if patient should become febrile or for worsening leukocytosis. (2) Spontaneous bacterial peritonitis Is this a current diagnosis for this admission?: Yes (3) Cirrhosis of liver Qualifiers: Hepatic cirrhosis type: alcoholic cirrhosis Is this a current diagnosis for this admission?: YesPlan: Continue spironolactone, lactulose, propranolol, Lasix. Increase spironolactone dose. Alcohol cessation is discussed with patient again today. Palliative care consult. (4) Encephalopathy Is this a current diagnosis for this admission?: YesPlan: Resolved. Continue thiamine and lactulose. (5) Delirium tremens Is this a current diagnosis for this admission?: YesPlan: Resolved. (6) Thrombocytopenia Is this a current diagnosis for this admission?: Yes (7) Hypokalemia Is this a current diagnosis for this admission?: YesPlan: Replace as needed. (8) Alcohol abuse Is this a current diagnosis for this admission?: Yes (9) Hyponatremia Is this a current diagnosis for this admission?: Yes (10) Abnormal thyroid function test Is this a current diagnosis for this admission?: YesPlan: Repeat in 3 weeks when acute illness resolved. (11) Ambulatory dysfunction Is this a current diagnosis for this admission?: YesPlan: Patient is improving daily. He will likely be able to discharge home early next week with home health services. - Time Time Spent with patient: 35 or more minutes Anticipated discharge: Home with Homehealth Within: within 72 hours
[2017-01-16] MEDS ORDERED: OXYCODONE HCL SR 10 MG TABLET PO ONE (11:30)
[2017-01-16] MEDS: FUROSEMIDE 20 MG TABLET PO SCH (12:03)
[2017-01-16] MEDS: LACTULOSE SYRUP 20 GM/30 ML UDCUP PO SCH (18:37)
--- NOTE | 2017-01-16 19:33 | Palliative Consultation Report ---
Consultation From:: MATTEO WEBER - HPI Chief Complaint: Abd pain, liver disease HPI: Palliative care Initial visit 12:20-1:00 pm 01/16/17 Appreciate consult request with this 56 year old man who was admitted through the ER on 12/31/16 due to abd. pain, nausea/ vomiting/ diarrhea off and on for 2 months, much worse day of admission. He was diagnosed with bacterial peritonitis and has been treated with IV antibiotics until recently. Other contiributing diagnosis/problems include: alcoholic cirrhosis, encephalopathy, DT's, His albumin level is 2.4, INR 1.19 thrombocytopenia, HTN, CVA, Depression and chronic pain. During this hospitalization, patients mentation has improved with improvement of ammonia levels and nutrition as well as reduction infection and alcohol consumption. However, he still complains of pain and requires dilaudid every four hours. He has had two paracentesis, removing 1550ml and recently 2400 ml. His abd is already full and tight and last tapwas only 01/15. He does have bruising noted on his arms but states from labs and IV's. He has edema of lower extremities with mild petichiae. I spoke with him frankly and at length about his prognosis. I explained that he is very nearly meeting the criteria for hospice admission for cirrhosis , meaning he would have a life expectancy of six months or less. However, there is a possibility that if he would change his lifestyle, stop drinking ANY alcohol, avoid all drugs/pain meds/tylenol, etc he could reverse some of the damage and feel better lengthening his life expectancy. I stressed that at present his liver is very sick and it will take major concentrated effort to improve. He states he is going to stop drinking any alcohol, but he says he is going to switch to oral dilaudid as his doctor promised for pain. He reports that he stopped drinking another time for 8 months before he restarted. He is going to go home to live after discharge and says he has help at home. He reports having a PCP that he follows with although his chart says he has no insurance. I also talked with him about advance directives and code status. He says he wants all resuscitation measures done because he deserves "a chance". I spoke with him about the only chance he has is by making the healthier decisions and stopping all alcohol as well as limiting pain meds. Being on a ventilator or having CPR will not save him from his liver disease. But since he is so sure he is going to change his lifestyle, he did not want to be a DNR Onset: Other Onset/Duration: Gradual Quality of Pain: Cramping, Pressure Severity: Moderate Pain Level: 4 Associated Symptoms: Diarrhea, Nausea, Vomiting, Weakness Exacerbated by: Food Relieved by: Other - says his dilaudid every four hours is not really enough to stop his pain. Past Medical History(Consults) - General Information Source: Patient, [facility] Records Home Medications: No Home Medications 01/01/17 Allergies/Adverse Reactions: morphine Allergy (Verified 05/28/16 08:08) Penicillins Allergy (Verified 05/28/16 08:08) - Social History Lives with: Family Family History: Reviewed & Not Pertinent, CAD Parental Family History Reviewed: No Children Family History Reviewed: No Sibling(s) Family History Reviewed.: No Smoking Status: Current Every Day Smoker Cigarettes Packs Per Day: 0.5 Frequency of Alcohol Use: Heavy Amount of Alcoholic Beverages Per Day: per patient 3 beers a day (per , he is a "heavy drinker") Last Alcohol Use: 12/30/16 Hx Recreational Drug Use: No Drugs: None Hx Prescription Drug Abuse: No - Past Medical History Cardiac Medical History: Reports: Hx Hypertension Pulmonary Medical History: Reports: None EENT Medical History: Reports: None Neurological Medical History: Reports: Hx Cerebrovascular Accident Endocrine Medical History: Reports: None Renal/ Medical History: Reports: None Malignancy Medical History: Reports None GI Medical History: Reports: Hx Cirrhosis Skin Medical History: Reports None Psychiatric Medical History: Reports: Hx Anxiety, Hx Depression - Severe Traumatic Medical History: Reports: None Infectious Medical History: Reports: None Hematology: Reports: None - Surgical History Past Surgical History: Reports: Hx Orthopedic Surgery Review of systems Constitutional: Malaise, Weakness, Weight gain EENT: No symptoms reported Cardiovascular: No symptoms reported Respiratory: Short of breath Gastrointestinal: Abdomen distended, Abdominal pain, Nausea, Vomiting Geniturinary: No symptoms reported Musculoskeltal: No symptoms reported Skin: No symptoms reported Hematologic/Lymphatic: Easy bruising Neurological/Psychological: Depression, Anxiety Ojective:Exam Vital Signs: Temp Pulse Resp BP Pulse Ox 97.5 F 99 18 128/73 H 96 01/16/17 15:51 01/16/17 15:51 01/16/17 15:51 01/16/17 15:51 01/16/17 15:51 Intake & Output 01/15/17 01/16/17 01/17/17 06:59 06:59 06:59 Intake Total 300 1845 1700 Output Total 3 Balance 297 1845 1700 Weight 79.1 kg 80.6 kg - General General Appearance: Alert, Anxious In distress: Mild Note:: oriented, speaks clearly and appropriately, decisional. - HEENT Head: Normocephalic Eyes: Scleral icterus - Respiratory Respiratory Status: Other - some difficulty with breathing from pressure abdomen Breath sounds: Clear - Cardiovascular Rhythm: Regular Pulses: Normal: Brachial - Abdominal Distension: Distended Bowel Sounds: Hyperactive Tenderness: Tender - full and fairly tight in abd, appears to already have re- accumulation of ascites. - Extremities Upper extremity: Edema, Other - multiple bruises Lower extremities: Edema - Neurological Cognition: Normal Orientation: Alert, Oriented to place, Oriented to time Speech: Normal Cranial nerves: Normal Motor exam: Weakness Sensory: Normal - Psychological Associated symptoms: Anxious, Tearful - Skin Skin Temperature: Warm Skin Moisture: Dry Skin Color: Petechiae, Ecchymosis Skin Turgor: Loose Objective-Diagnostic Laboratory: 01/16/17 05:45 01/16/17 05:45 01/16/17 01/16/17 05:45 05:45 WBC 17.1 H RBC 3.65 L Hgb 12.8 L Hct 37.7 L MCV 103 H MCH 35.1 H MCHC 34.0 RDW 14.8 H Plt Count 268 Seg Neutrophils % 73.3 Lymphocytes % 14.7 Monocytes % 8.8 Eosinophils % 2.8 Basophils % 0.4 Absolute Neutrophils 12.5 H Absolute Lymphocytes 2.5 Absolute Monocytes 1.5 H Absolute Eosinophils 0.5 Absolute Basophils 0.1 Sodium 140.8 Potassium 3.2 L Chloride 103 Carbon Dioxide 27 Anion Gap 11 BUN 3 L Creatinine 0.44 L Est GFR ( Amer) > 60 Est GFR (Non-Af Amer) > 60 Glucose 121 H Calcium 8.1 L Magnesium 1.6 Total Bilirubin 4.5 H AST 117 H ALT 44 Alkaline Phosphatase 248 H Total Protein 5.4 L Albumin 2.4 L Plan and Recommendation Plan and Recommendation: discussed hospice following if he gets worse. Patient assured that he will be better because he is going to stop drinking. He is frightened as he has never een "this sick" so perhaps it will give him reason to stop alcohol. Does not want to change code status at present. Will follow while admitted. Hopefully he has PCP and will follow after discharge. Appreciate opportunity to participate in care. - Time Spent with Patient Time spent with patient: 30 to 40 Minutes - 30 min with patient, 20 min in chart review
[2017-01-16] MEDS: OXYCODONE HCL SR 10 MG TABLET PO SCH (21:31)
[2017-01-17] MEDS: HYDROMORPHONE HCL INJ/PF 2 MG/ML AMPULE IV PRN ×2 (02:41→12:08)
[2017-01-17 07:11] LABS: ABSOLUTE BASOPHILS # (AUTO) 0.1 10^3/uL (0.0-0.2); ABSOLUTE EOSINOPHILS # (AUTO) 0.4 10^3/uL (0.0-0.6); ABSOLUTE LYMPHOCYTES (AUTO) 1.9 10^3/uL (0.5-4.7); ABSOLUTE MONOCYTES (AUTO) 1.3 10^3/uL (0.1-1.4); ABSOLUTE NEUT (AUTO) 13.4 10^3/uL (1.7-8.2); BASOPHILS % (AUTO) 0.3 % (0-2); EOSINOPHILS % (AUTO) 2.3 % (0-6); HEMATOCRIT 37.5 % (37.9-51.0); HEMOGLOBIN 12.5 g/dL (13.5-17.0); LYMPHOCYTES % (AUTO) 11.1 % (13-45); MEAN CORPUSCULAR HEMOGLOBIN 34.7 pg (27.0-33.4); MEAN CORPUSCULAR HGB CONC 33.3 g/dL (32.0-36.0); MEAN CORPUSCULAR VOLUME 104 fl (80-97); MONOCYTES % (AUTO) 7.8 % (3-13); RED CELL DISTRIBUTION WIDTH 14.5 % (11.5-14.0); SEGMENTED NEUTROPHILS % (AUTO) 78.5 % (42-78); WHITE BLOOD COUNT 17.1 10^3/uL (4.0-10.5)
[2017-01-17 07:27] LABS: ALANINE AMINOTRANSFERASE 44 U/L (21-72); ALBUMIN 2.5 g/dL (3.5-5.0); ALKALINE PHOSPHATASE 238 U/L (38-126); ANION GAP 9 (5-19); ASPARTATE AMINO TRANSFERASE 106 U/L (17-59); BILIRUBIN,DIRECT 3.5 mg/dL (0.0-0.4); BILIRUBIN,TOTAL 4.5 mg/dL (0.2-1.3); BLOOD UREA NITROGEN 3 mg/dL (7-20); CALCIUM 8.1 mg/dL (8.4-10.2); CARBON DIOXIDE 31 mmol/L (22-30); CHLORIDE 102 mmol/L (98-107); CREATININE RESULT 0.42 mg/dL (0.52-1.25); GLUCOSE 97 mg/dL (75-110); MAGNESIUM 1.7 mg/dL (1.6-2.3); POTASSIUM 3.1 mmol/L (3.6-5.0); SODIUM 141.9 mmol/L (137-145); TOTAL PROTEIN 5.9 g/dL (6.3-8.2)
[2017-01-17 07:31] LABS: ANISOCYTOSIS SLIGHT; TARGET CELLS 1+
[2017-01-17] MEDS: SPIRONOLACTONE 25 MG TABLET PO SCH ×2 (09:24→22:21)
[2017-01-17] MEDS: OXYCODONE HCL SR 10 MG TABLET PO SCH ×2 (09:25→22:20)
[2017-01-17] MEDS: THIAMINE HCL 100 MG TABLET PO SCH (09:27)
[2017-01-17] MEDS: PROPRANOLOL HCL 10 MG TABLET PO SCH (09:27)
[2017-01-17] MEDS: LACTULOSE SYRUP 20 GM/30 ML UDCUP PO SCH ×2 (09:32→17:35)
[2017-01-17] MEDS: FUROSEMIDE 20 MG TABLET PO SCH (12:08)
[2017-01-17] MEDS: POTASSIUM CHLORIDE 10 MEQ TABLET.SA PO SCH ×2 (12:09→22:21)
[2017-01-17] MEDS: LORAZEPAM 1 MG TABLET PO PRN ×2 (13:38→22:41)
--- NOTE | 2017-01-17 16:01 | PDOC PROGRESS REPORT ---
Subjective Progress Note for:: 01/17/17 Subjective:: Patient is seen on morning rounds. He is resting comfortably in bed. He denies any shortness of breath, chest pain or dyspnea. He continues to have mild abdominal discomfort. His abdomen is mildly distended with ascites. He denies nausea, vomiting or diarrhea. He denies any significant athralgias or myalgias. He verbalizes no other complaints Rest of the review of systems are negative Physical Exam Vital Signs: Temp Pulse Resp BP Pulse Ox 97.8 F 71 20 138/80 H 98 01/17/17 08:00 01/17/17 08:00 01/17/17 08:00 01/17/17 08:00 01/17/17 08:00 Intake & Output 01/16/17 01/17/17 01/18/17 06:59 06:59 06:59 Intake Total 1845 2915 Balance 1845 2915 Weight 80.6 kg 83.2 kg General appearance: PRESENT: no acute distress, well-developed, well-nourished Head exam: PRESENT: atraumatic, normocephalic Eye exam: PRESENT: conjunctiva pink, EOMI, PERRLA. ABSENT: scleral icterus Ear exam: PRESENT: normal external ear exam Mouth exam: PRESENT: moist, tongue midline Neck exam: ABSENT: carotid bruit, JVD, lymphadenopathy, thyromegaly Respiratory exam: PRESENT: clear to auscultation billy. ABSENT: rales, rhonchi, wheezes Cardiovascular exam: PRESENT: RRR. ABSENT: diastolic murmur, rubs, systolic murmur Pulses: PRESENT: normal dorsalis pedis pul Vascular exam: PRESENT: normal capillary refill GI/Abdominal exam: PRESENT: ascites, normal bowel sounds, soft, tenderness Rectal exam: PRESENT: deferred Extremities exam: PRESENT: full ROM. ABSENT: calf tenderness, clubbing, pedal edema Neurological exam: PRESENT: alert, awake, oriented to person, oriented to place , oriented to time, oriented to situation, CN II-XII grossly intact. ABSENT: motor sensory deficit Psychiatric exam: PRESENT: anxious Skin exam: PRESENT: dry, intact, warm. ABSENT: cyanosis, rash Results Laboratory Results: 01/17/17 06:57 01/17/17 06:57 01/17/17 01/17/17 06:57 06:57 WBC 17.1 H RBC 3.60 L Hgb 12.5 L Hct 37.5 L MCV 104 H MCH 34.7 H MCHC 33.3 RDW 14.5 H Plt Count 244 Seg Neutrophils % 78.5 H Lymphocytes % 11.1 L Monocytes % 7.8 Eosinophils % 2.3 Basophils % 0.3 Absolute Neutrophils 13.4 H Absolute Lymphocytes 1.9 Absolute Monocytes 1.3 Absolute Eosinophils 0.4 Absolute Basophils 0.1 Sodium 141.9 Potassium 3.1 L Chloride 102 Carbon Dioxide 31 H Anion Gap 9 BUN 3 L Creatinine 0.42 L Est GFR ( Amer) > 60 Est GFR (Non-Af Amer) > 60 Glucose 97 Calcium 8.1 L Magnesium 1.7 Total Bilirubin 4.5 H AST 106 H ALT 44 Alkaline Phosphatase 238 H Total Protein 5.9 L Albumin 2.5 L Impressions: Abdomen Ultrasound 01/14/17 00:00 IMPRESSION: Small to moderate amount of ascites in all 4 quadrants Abdomen/Pelvis CT 01/14/17 00:00 IMPRESSION: 1. Moderate diffuse ascites. 2. Fatty infiltration of the liver. 3. Bilateral pleural effusions and basilar atelectasis new from prior study. Chest X-Ray 01/15/17 07:59 IMPRESSION: NO ACUTE RADIOGRAPHIC FINDING IN THE CHEST. Paracentesis Ultrasound 01/15/17 11:24 IMPRESSION: Successful ultrasound-guided diagnostic and therapeutic paracentesis Assessment & Plan - Diagnosis (1) Encephalopathy Is this a current diagnosis for this admission?: YesPlan: Secondary to elevated ammonia levels from cirrhosis. Improved with lactulose and abstinence from alcohol. (2) Cirrhosis of liver Qualifiers: Hepatic cirrhosis type: alcoholic cirrhosis Ascites presence: with ascites Qualified Code(s): K70.31 - Alcoholic cirrhosis of liver with ascites Is this a current diagnosis for this admission?: YesPlan: Continue current medications (3) Alcohol abuse Is this a current diagnosis for this admission?: YesPlan: Patient has been counseled on need to stop drinking he states he is going to do his best. (4) Spontaneous bacterial peritonitis Is this a current diagnosis for this admission?: YesPlan: Antibiotics have been discontinued at the recommendation of [facility]. Recommended observing 2 days prior to discharge. (5) Systemic inflammatory response syndrome (SIRS) Is this a current diagnosis for this admission?: YesPlan: Resolved with IV hydration and antibiotics. (6) Abdominal pain Qualifiers: Abdominal location: right upper quadrant Qualified Code(s): R10.11 - Right upper quadrant pain Is this a current diagnosis for this admission?: YesPlan: Improving secondary to cirrhosis, and ascites. Patient has underwent on 2 paracentesis. (7) Ascites of liver Is this a current diagnosis for this admission?: Yes (8) Delirium tremens Is this a current diagnosis for this admission?: YesPlan: Patient has required 2 paracentesis during this hospitalization. We will continue to monitor. (9) Thrombocytopenia Is this a current diagnosis for this admission?: YesPlan: Secondary to liver dysfunction and alcoholism. - Time Time Spent with patient: 25-34 minutes Critical Time spent with patient: 15-24 minutes Medications reviewed and adjusted accordingly: Yes Anticipated discharge: Home Within: within 48 hours
[2017-01-18] MEDS: HYDROMORPHONE HCL INJ/PF 2 MG/ML AMPULE IV PRN ×3 (04:32→20:53)
[2017-01-18 04:39] LABS: ALANINE AMINOTRANSFERASE 40 U/L (21-72); ALBUMIN 2.3 g/dL (3.5-5.0); ALKALINE PHOSPHATASE 227 U/L (38-126); ANION GAP 8 (5-19); ASPARTATE AMINO TRANSFERASE 108 U/L (17-59); BLOOD UREA NITROGEN 3 mg/dL (7-20); CALCIUM 8.2 mg/dL (8.4-10.2); CARBON DIOXIDE 30 mmol/L (22-30); CHLORIDE 102 mmol/L (98-107); CREATININE RESULT 0.49 mg/dL (0.52-1.25); GLUCOSE 79 mg/dL (75-110); MAGNESIUM 1.7 mg/dL (1.6-2.3); POTASSIUM 3.7 mmol/L (3.6-5.0); SODIUM 139.7 mmol/L (137-145); TOTAL PROTEIN 5.2 g/dL (6.3-8.2)
[2017-01-18] MEDS ORDERED: MAGNESIUM SULFATE/D5W 100 ML IV ONE (09:51)
[2017-01-18] MEDS: THIAMINE HCL 100 MG TABLET PO SCH (10:58)
[2017-01-18] MEDS: LACTULOSE SYRUP 20 GM/30 ML UDCUP PO SCH ×2 (10:58→17:47)
[2017-01-18] MEDS: PROPRANOLOL HCL 10 MG TABLET PO SCH (10:58)
[2017-01-18] MEDS: OXYCODONE HCL SR 10 MG TABLET PO SCH ×2 (10:59→21:28)
[2017-01-18] MEDS: SPIRONOLACTONE 25 MG TABLET PO SCH ×2 (11:00→21:28)
[2017-01-18] MEDS: FUROSEMIDE 20 MG TABLET PO SCH (11:03)
--- NOTE | 2017-01-18 14:13 | PDOC PROGRESS REPORT ---
Subjective Progress Note for:: 01/18/17 Subjective:: Patient is seen on morning rounds. He is resting comfortably in bed. He denies any shortness of breath, chest pain or dyspnea. He continues to have mild abdominal discomfort. His abdomen is mildly distended with ascites. He denies nausea, vomiting or diarrhea. He denies any significant athralgias or myalgias. He verbalizes no other complaints Rest of the review of systems are negative Physical Exam Vital Signs: Temp Pulse Resp BP Pulse Ox 98.0 F 79 18 125/78 97 01/18/17 12:00 01/18/17 12:00 01/18/17 12:00 01/18/17 12:00 01/18/17 12:00 Intake & Output 01/17/17 01/18/17 01/19/17 06:59 06:59 06:59 Intake Total 2915 1070 Balance 2915 1070 Weight 83.2 kg 74.8 kg General appearance: PRESENT: no acute distress, well-developed, well-nourished Head exam: PRESENT: atraumatic, normocephalic Eye exam: PRESENT: conjunctiva pink, EOMI, PERRLA. ABSENT: scleral icterus Ear exam: PRESENT: normal external ear exam Mouth exam: PRESENT: moist, tongue midline Neck exam: ABSENT: carotid bruit, JVD, lymphadenopathy, thyromegaly Respiratory exam: PRESENT: decreased breath sounds, symmetrical, unlabored Cardiovascular exam: PRESENT: RRR. ABSENT: diastolic murmur, rubs, systolic murmur Pulses: PRESENT: normal dorsalis pedis pul Vascular exam: PRESENT: normal capillary refill GI/Abdominal exam: PRESENT: distended, normal bowel sounds, soft. ABSENT: guarding, mass, organolmegaly, rebound, tenderness Rectal exam: PRESENT: deferred Extremities exam: PRESENT: full ROM. ABSENT: calf tenderness, clubbing, pedal edema Neurological exam: PRESENT: alert, awake, oriented to person, oriented to place , oriented to time, oriented to situation, CN II-XII grossly intact. ABSENT: motor sensory deficit Psychiatric exam: PRESENT: anxious Skin exam: PRESENT: dry, intact, warm. ABSENT: cyanosis, rash Results Laboratory Results: 01/17/17 06:57 01/18/17 04:10 01/18/17 01/18/17 04:10 04:10 Sodium 139.7 Potassium 3.7 Chloride 102 Carbon Dioxide 30 Anion Gap 8 BUN 3 L Creatinine 0.49 L Est GFR ( Amer) > 60 Est GFR (Non-Af Amer) > 60 Glucose 79 Calcium 8.2 L Magnesium 1.7 Total Bilirubin 4.0 H AST 108 H ALT 40 Alkaline Phosphatase 227 H Ammonia 9.9 Total Protein 5.2 L Albumin 2.3 L Impressions: Abdomen Ultrasound 01/14/17 00:00 IMPRESSION: Small to moderate amount of ascites in all 4 quadrants Abdomen/Pelvis CT 01/14/17 00:00 IMPRESSION: 1. Moderate diffuse ascites. 2. Fatty infiltration of the liver. 3. Bilateral pleural effusions and basilar atelectasis new from prior study. Chest X-Ray 01/15/17 07:59 IMPRESSION: NO ACUTE RADIOGRAPHIC FINDING IN THE CHEST. Paracentesis Ultrasound 01/15/17 11:24 IMPRESSION: Successful ultrasound-guided diagnostic and therapeutic paracentesis Assessment & Plan - Diagnosis (1) Encephalopathy Is this a current diagnosis for this admission?: YesPlan: Secondary to elevated ammonia levels from cirrhosis. Resolved with lactulose and abstinence from alcohol. (2) Cirrhosis of liver Qualifiers: Hepatic cirrhosis type: alcoholic cirrhosis Ascites presence: with ascites Qualified Code(s): K70.31 - Alcoholic cirrhosis of liver with ascites Is this a current diagnosis for this admission?: YesPlan: Continue current medications (3) Alcohol abuse Is this a current diagnosis for this admission?: YesPlan: Patient has been counseled on need to stop drinking he states he is going to do his best. (4) Spontaneous bacterial peritonitis Is this a current diagnosis for this admission?: YesPlan: Antibiotics have been discontinued at the recommendation of [facility]. Recommended observing 2 days prior to discharge. (5) Systemic inflammatory response syndrome (SIRS) Is this a current diagnosis for this admission?: YesPlan: Resolved with IV hydration and antibiotics. (6) Abdominal pain Qualifiers: Abdominal location: right upper quadrant Qualified Code(s): R10.11 - Right upper quadrant pain Is this a current diagnosis for this admission?: YesPlan: Improving secondary to cirrhosis, and ascites. Patient has underwent on 2 paracentesis. (7) Ascites of liver Is this a current diagnosis for this admission?: YesPlan: Patient has undergone 2 paracentesis while here. One for 2 liters, the other 11/ 2 liters (8) Delirium tremens Is this a current diagnosis for this admission?: YesPlan: Patient has required 2 paracentesis during this hospitalization. We will continue to monitor. (9) Thrombocytopenia Is this a current diagnosis for this admission?: YesPlan: Secondary to liver dysfunction and alcoholism. - Time Time Spent with patient: 25-34 minutes Medications reviewed and adjusted accordingly: Yes Anticipated discharge: Home Within: within 24 hours
[2017-01-18] MEDS: LORAZEPAM 1 MG TABLET PO PRN (17:52)
[2017-01-19] MEDS: HYDROMORPHONE HCL INJ/PF 2 MG/ML AMPULE IV PRN (01:08)
[2017-01-19] MEDS: LORAZEPAM 1 MG TABLET PO PRN (02:08)
[2017-01-19 04:43] LABS: ABSOLUTE BASOPHILS # (AUTO) 0.1 10^3/uL (0.0-0.2); ABSOLUTE EOSINOPHILS # (AUTO) 0.7 10^3/uL (0.0-0.6); ABSOLUTE LYMPHOCYTES (AUTO) 1.8 10^3/uL (0.5-4.7); ABSOLUTE MONOCYTES (AUTO) 1.3 10^3/uL (0.1-1.4); ABSOLUTE NEUT (AUTO) 12.6 10^3/uL (1.7-8.2); BASOPHILS % (AUTO) 0.5 % (0-2); EOSINOPHILS % (AUTO) 4.1 % (0-6); HEMATOCRIT 35.3 % (37.9-51.0); HEMOGLOBIN 11.6 g/dL (13.5-17.0); HGB HCT DIFFERENCE -0.5; LYMPHOCYTES % (AUTO) 11.1 % (13-45); MEAN CORPUSCULAR HEMOGLOBIN 34.4 pg (27.0-33.4); MEAN CORPUSCULAR HGB CONC 32.9 g/dL (32.0-36.0); MEAN CORPUSCULAR VOLUME 105 fl (80-97); RED BLOOD COUNT 3.38 10^6/uL (4.35-5.55); RED CELL DISTRIBUTION WIDTH 14.5 % (11.5-14.0); SEGMENTED NEUTROPHILS % (AUTO) 76.3 % (42-78); WHITE BLOOD COUNT 16.5 10^3/uL (4.0-10.5)
[2017-01-19 08:07] VITALS: BP 139/71
[2017-01-19] MEDS: LACTULOSE SYRUP 20 GM/30 ML UDCUP PO SCH (10:55)
[2017-01-19] MEDS: FUROSEMIDE 20 MG TABLET PO SCH (10:55)
[2017-01-19] MEDS: THIAMINE HCL 100 MG TABLET PO SCH (10:55)
[2017-01-19] MEDS: SPIRONOLACTONE 25 MG TABLET PO SCH (10:56)
[2017-01-19] MEDS: OXYCODONE HCL SR 10 MG TABLET PO SCH (10:56)
[2017-01-19] MEDS: PROPRANOLOL HCL 10 MG TABLET PO SCH (10:57)
--- NOTE | 2017-01-19 14:48 | PDOC DISCHARGE SUMMARY ---
General - Admit/Disc Date/PCP Admission Date/Primary Care Provider: 12/31/16 08:34 Discharge Date: 01/19/17 - Discharge Diagnosis (1) Cirrhosis of liver Is this a current diagnosis for this admission?: YesSummary: Patient has been counseled extensively as well as his . He is instructed states he absolutely must abstain from alcohol. He was given prescriptions which he was instructed on reasons and why he needs to take them. He will follow-up with the [facility] next week he will likely need future paracentesis for drainage of ascites. (2) Alcohol abuse Is this a current diagnosis for this admission?: YesSummary: Patient has been counseled on his need to abstain from alcohol if he wishes to have any type of survival from end-stage liver disease. (3) Delirium tremens Is this a current diagnosis for this admission?: NoSummary: This resolved (4) Spontaneous bacterial peritonitis Is this a current diagnosis for this admission?: YesSummary: He was treated with broad spectrum antibiotics. He has been off Arimidex now for 72 hours with no fever or leukocytosis. (5) Systemic inflammatory response syndrome (SIRS) Is this a current diagnosis for this admission?: Yes (6) Ascites of liver Is this a current diagnosis for this admission?: Yes (7) Abdominal pain Is this a current diagnosis for this admission?: YesSummary: Secondary to cirrhosis and ascites. He was given when necessary pain medication. He was instructed not to take Tylenol or ibuprofen except as directed. (8) Thrombocytopenia Is this a current diagnosis for this admission?: Yes (9) Encephalopathy Is this a current diagnosis for this admission?: No - Additional Information Resuscitation Status: Full Code Discharge Diet: Regular Discharge Activity: Activity As Tolerated, Balance Activity w/Rest Home Medications: Lactulose [Cephulac Syrup 20 gm/30 ml Udcup] 20 gm PO BID #480 udc 01/19/17 Lorazepam [Ativan 1 mg Tablet] 1 mg PO Q8HP PRN #30 tablet 01/19/17 Oxycodone HCl [Oxycontin Sr 10 mg Tablet] 10 mg PO Q12 #20 tab.sr.12h 01/19/17 Propranolol HCl [Inderal 10 mg Tablet] 10 mg PO DAILY #30 tablet 01/19/17 Spironolactone [Aldactone 25 mg Tablet] 50 mg PO Q12 #30 tablet 01/19/17 Thiamine HCl [Thiamine 100 mg Tablet] 100 mg PO DAILY #30 tablet 01/19/17 History of Present Illness Patient complains of: Nausea, vomiting, abdominal pain. History of Present Illness: ELSA FONTENOT JR is a 56 year old male who reports a two-month history of nausea and vomiting along with diarrhea but this got progressively worse over the last 2 days. He reports she's had a 20 pound weight loss over the last year. He also reports having some low-grade fevers and chills. He is a alcoholic who has at least 3 beers daily. He had an ultrasound done which shows him to have some ascitic fluid present. The patient takes no medications. He denies any cough. He denies orthopnea or PND. Denies any lower extremity edema. He does report he drinks at least 3 beers daily in the past has drank more than that. Patient reports he feels dizzy when he stands up but denies any loss of consciousness. Denies any chest pain or palpitations. Denies any dysuria. Denies any hematemesis. Denies any melena or bright red blood per rectum. Hospital Course Hospital Course: Patient was admitted to the hospitalist service on telemetry. He was given IV fluids, antiemetics broad-spectrum antibiotics for possible spontaneous bacterial peritonitis. Dr. Leon, gastro-enterologist, saw the patient in consult. He is abdominal pain came from his cirrhosis alone. He underwent ultrasound-guided paracentesis 2 once on the , and once on the . First paracentesis yielded 1500, the second paracentesis yielded 2400 mL of fluid. This fluid was analyzed and found to have no bacteria. Patient had difficulty with delirium tremens, requiring IV Ativan, followed by periods of being barely responsive. He did have some elevation of liver enzymes which have slowly resolved as well as thrombocytopenia from his alcohol cirrhosis. Patient also had a palliative care consult placed. Again his poor prognosis was explained to he and his in the setting of end-stage liver disease, especially if he continues to drink. He and his both have good understanding of his disease process. Over the last 2 days he's increased his activity, and is eating well. His lab values have been stable. Is ready for discharge and we agree. Physical Exam Vital Signs: Temp Pulse Resp BP Pulse Ox 97.8 F 81 18 139/71 H 96 01/19/17 11:19 01/19/17 11:19 01/19/17 11:19 01/19/17 11:19 01/19/17 11:19 Intake & Output 01/18/17 01/19/17 01/20/17 06:59 06:59 06:59 Intake Total 1070 1600 Balance 1070 1600 Weight 74.8 kg 72.4 kg General appearance: PRESENT: no acute distress, disheveled, well-developed, well -nourished Head exam: PRESENT: atraumatic, normocephalic Eye exam: PRESENT: conjunctiva pink, EOMI, PERRLA. ABSENT: scleral icterus Ear exam: PRESENT: normal external ear exam Mouth exam: PRESENT: moist, tongue midline Neck exam: ABSENT: carotid bruit, JVD, lymphadenopathy, thyromegaly Respiratory exam: PRESENT: clear to auscultation billy. ABSENT: rales, rhonchi, wheezes Cardiovascular exam: PRESENT: RRR. ABSENT: diastolic murmur, rubs, systolic murmur Pulses: PRESENT: normal dorsalis pedis pul Vascular exam: PRESENT: normal capillary refill GI/Abdominal exam: PRESENT: firm, normal bowel sounds, tenderness - Generalized. ABSENT: distended, guarding, mass, organolmegaly, rebound Rectal exam: PRESENT: deferred Extremities exam: PRESENT: full ROM. ABSENT: calf tenderness, clubbing, pedal edema Neurological exam: PRESENT: alert, awake, oriented to person, oriented to place , oriented to time, oriented to situation, CN II-XII grossly intact. ABSENT: motor sensory deficit Psychiatric exam: PRESENT: anxious Skin exam: PRESENT: dry, intact, warm. ABSENT: cyanosis, rash Results Laboratory Results: 01/19/17 04:08 01/18/17 04:10 01/19/17 04:08 WBC 16.5 H RBC 3.38 L Hgb 11.6 L Hct 35.3 L MCV 105 H MCH 34.4 H MCHC 32.9 RDW 14.5 H Plt Count 223 Seg Neutrophils % 76.3 Lymphocytes % 11.1 L Monocytes % 8.0 Eosinophils % 4.1 Basophils % 0.5 Absolute Neutrophils 12.6 H Absolute Lymphocytes 1.8 Absolute Monocytes 1.3 Absolute Eosinophils 0.7 H Absolute Basophils 0.1 01/15/17 14:49 Abdominal Fluid Gram Stain - Final 01/15/17 14:49 Abdominal Fluid Body Fluid Culture - Final NO AEROBIC OR ANAEROBIC ORGANISMS RECOVERED Impressions: Abdomen Ultrasound 01/14/17 00:00 IMPRESSION: Small to moderate amount of ascites in all 4 quadrants Abdomen/Pelvis CT 01/14/17 00:00 IMPRESSION: 1. Moderate diffuse ascites. 2. Fatty infiltration of the liver. 3. Bilateral pleural effusions and basilar atelectasis new from prior study. Chest X-Ray 01/15/17 07:59 IMPRESSION: NO ACUTE RADIOGRAPHIC FINDING IN THE CHEST. Paracentesis Ultrasound 01/15/17 11:24 IMPRESSION: Successful ultrasound-guided diagnostic and therapeutic paracentesis Qualifiers [facility] BEING DISCHARGED WITH ANY OF THE FOLLOWING DIAGNOSIS?: No Plan Discharge Plan: Home with . He will follow-up with community [facility] clinic Time Spent: Less than 30 Minutes
== END 2017-01-19 12:49 | disposition home or self-care (01) | DRG 372 ==
LOC: ER 02:17 → EH 07:58 → UNDOADMIN 07:58 → 3N 08:34 → EH 10:05 → 4S 01-04 23:53 → 4N 01-11 17:25
PROVIDERS: ADMIT Internal Medicine; ATTEND Internal Medicine
PROC: 0W9G3ZX Drainage of Peritoneal Cavity, Percutaneous Approach, Diagnostic (ICD-10-PCS; principal; 2017-01-09)
PROC: 0W9G3ZX Drainage of Peritoneal Cavity, Percutaneous Approach, Diagnostic (ICD-10-PCS; 2017-01-15)
DX: K65.2 Spontaneous bacterial peritonitis (principal); F10.231 Alcohol dependence with withdrawal delirium; E51.2 Wernicke's encephalopathy; E87.1 Hypo-osmolality and hyponatremia; K70.31 Alcoholic cirrhosis of liver with ascites; Z51.5 Encounter for palliative care; D69.6 Thrombocytopenia, unspecified; I10 Essential (primary) hypertension; Z86.73 Personal history of transient ischemic attack (TIA), and cerebral infarction without residual deficits; F32.9 Major depressive disorder, single episode, unspecified; G89.29 Other chronic pain; F41.9 Anxiety disorder, unspecified; M40.209 Unspecified kyphosis, site unspecified; F17.210 Nicotine dependence, cigarettes, uncomplicated; E78.5 Hyperlipidemia, unspecified; E87.6 Hypokalemia; K70.0 Alcoholic fatty liver; R94.6 Abnormal results of thyroid function studies; Z79.899 Other long term (current) drug therapy; Z88.6 Allergy status to analgesic agent; Z88.0 Allergy status to penicillin; Z82.49 Family history of ischemic heart disease and other diseases of the circulatory system
CPT/HCPCS: 36415; 49083; 71010; 74177; 76705; 80048; 80053; 80074; 80307; 81001; 82140; 82607; 82962; 83690; 83735; 84439; 84443; 84481; 85025; 85027; 85610; 85730; 86038; 86235; 86256; 87040; 87070; 87075; 87077; 87205; 89050; 93976; 96374; 96375; 96376; 99285; J0696; J0744; J1170; J1335; J1885; J2060; J2405; J3370; J3411; J3475; J3480; J3490; J7030; J7060; S0164